=== PATIENT | female | born 1990 | race Caucasian/White ===

== ENCOUNTER → 2021-02-11 08:57 | Outpatient (CLI) | payer BC, SELFPAY ==
[2021-02-11 09:11] LABS: Absolute Lymphocyte Count 1.95 X10^3/uL (0.83-4.51); Basophil# 0.05 X10^3/uL; Basophil% 0.9 % (0-1); Eosinophil# 0.07 X10^3/uL; Eosinophils% 1.2 % (0-5); Hematocrit 43.8 % (37-47); Hemoglobin 14.8 g/dL (12.0-15.0); Lymphocyte # 1.95 X10^3/ul (0.83-4.51); Lymphocyte % 33.5 % (19-41); Mean Corp Hgb Conc 33.8 g/dL (32-36); Mean Corpuscular Hgb 31.8 pg (27.0-32.0); Mean Corpuscular Volume 94.2 fL (81-99); Mean Platelet Vol. 9.6 fl (6.2-12.0); Monocyte# 0.69 X10^3/uL; Monocyte% 11.9 % (0-10); NRBC Flagged by Analyzer 0 % (0-5); Neutrophil # 3.03 X10^3/uL (2.7-7.7); Platelet Count 288 K/mm3 (150-450); RBC Distribution Width CV 11.8 % (11.6-14.6); RBC Distribution Width SD 40.4 fl (35.1-43.9); Red Blood Count 4.65 M/mm3 (4.2-5.4); White Blood Count 5.8 K/mm3 (4.4-11.0)
[2021-02-16 15:35] LABS: HPV APTIMA, High Risk Negative (Negative)
== END ==
PROVIDERS: PCP Family Medicine; Referring Provider Nurse Practitioner Women's Health; Visit Provider Nurse Practitioner Women's Health
DX: Z12.4 Encounter for screening for malignant neoplasm of cervix (principal); N92.6 Irregular menstruation, unspecified
CPT/HCPCS: 36415; 85025; 87624; 88175; G0145

== ENCOUNTER 2021-05-22 09:17 | Outpatient (CLI) | payer BC, SELFPAY ==
--- NOTE | 2021-05-22 09:20 | RAD_ITS ---
STUDY: Hysterosalpingogram. REASON FOR EXAM: Female, 31 years old. Infertility FLUOROSCOPY TIME (if supplied): ( 41 seconds ) minutes/seconds. 3 images were obtained. TECHNIQUE: The hysterosalpingogram was performed by the gyro mechanic. Imaging was provided. COMPARISON: None. FINDINGS: The uterus is unremarkable. There is patency of both fallopian tubes with free spill. RAD/Salpingogram IMPRESSION: There is patency of both fallopian tubes with free spill. Electronically Signed: Clark Ontiveros MD at 12:25 EST , Service support ,
--- NOTE | 2021-05-22 10:26 | OP.PCM_ITS ---
Problems Associated Problem List Diagnoses (1) Infertility: Operative Report Date of Procedure: 05/22/21 Preop diagnosis: Infertility Postop diagnosis: Same plus bilateral tubal patency Procedure: Hysterosalpingogram Surgeon: Jasmyne To Implantable devices: None Complications: None Findings: Bilateral tubal patency and normal uterine cavity Operative details: Patient was taken to the x-ray room and was placed on the x- ray table and was in the dorsal lithotomy position. Speculum was placed in the vagina and the cervix prepped with Betadine and the HSG catheter was easily introduced into the uterus and speculum removed. Radiologist was brought in and while pushing radiopaque dye into the uterus via the HSG catheter the radiologist took multiple images and views and confirmed bilateral tubal patency seen. No gross uterine filling defects or abnormalities were seen. All instruments removed from the vagina and the uterus without complication. Patient tolerated the procedure well.
== END 2021-05-22 23:59 | disposition short-term general hospital (02) ==
LOC: RAD 09:19
PROVIDERS: PCP Family Medicine; Referring Provider Obstetrics & Gynecology; Visit Provider Obstetrics & Gynecology
DX: N97.9 Female infertility, unspecified (principal); N92.6 Irregular menstruation, unspecified
CPT/HCPCS: 58340; 74740; Q9967

== ENCOUNTER 2021-08-18 10:44 | Day surgery (SDC) | payer BC, SELFPAY ==
--- NOTE | 2021-08-16 04:50 | HP.PCM_ITS ---
HPI - General HPI Narrative MANISH LEO, is a 31 F who presents diagnostic laparoscopy due to infertility and dysmenorrhea, she has a family history of endoemtriosis. she has painful menses, had a patent HSG in may. [facility] Medical History (Updated 08/11/21 @ 10:25 by Amy Greene) Alcohol use History of hysterosalpingogram Non-smoker Thyroid disorder Wears glasses Home Medications levothyroxine 75 mcg tablet 75 mcg PO DAILY 03/31/20 [History Last Taken Unknown] vitamin#30 30 mg iron-10 mg iron-folic acid 1 mg-omg3 capsule 1 cap PO DAILY 03/31/20 [History Last Taken Unknown] cholecalciferol (vitamin D3) 50 mcg (2,000 unit) capsule 50 mcg PO DAILY 02/11/21 [History Last Taken Unknown] Allergy/AdvReac Type Severity Reaction Status Date / Time cefaclor [From [facility]] Allergy Mild other Verified 08/11/21 10:19 Family History Father Sarcoid S/P mitral valve repair Mother Osteoporosis Endometriosis Surgical History (Updated 08/11/21 @ 10:25 by Amy Greene) ACL (anterior cruciate ligament) tear Ganglion cyst of left groin Hx of wisdom tooth extraction Social History Smoking Status: Never smoker alcohol intake: current details: social substance use type: does not use caffeine: No what type of physical activity do you participate in: walking, yoga and weight training seatbelt use: always do you feel safe at home: Yes additional social history: [employer] 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 ROS Review of Systems ROS Unobtainable: due to mental status and other Constitutional Constitutional: Reports systems reviewed and no addt'l complaints, except as documented; Denies as per HPI, change in weight, fatigue, fever(s), malaise, weakness or other Eyes Eyes: Reports systems reviewed and no addt'l complaints, except as documented; Denies as per HPI, change in vision or other ENT HEENT: Reports systems reviewed and no addt'l complaints, except as documented Respiratory/Chest Respiratory/Chest: Reports systems reviewed and no addt'l complaints, except as documented Gastrointestinal Gastrointestinal: Reports systems reviewed and no addt'l complaints, except as documented and as per HPI Genitourinary Genitourinary: Reports as per HPI Musculoskeletal Musculoskeletal: Reports systems reviewed and no addt'l complaints, except as documented Neurologic Neurologic: Reports systems reviewed and no addt'l complaints, except as documented Psychiatric Psychiatric: Reports systems reviewed and no addt'l complaints, except as documented Endocrine Endocrinology: Reports systems reviewed and no addt'l complaints, except as doc umented Hematologic/Lymphatic Hematologic/Lymphatic: Reports systems reviewed and no addt'l complaints, except as documented Physical Exam Const alert, oriented x3 and no apparent distress HEENT normocephalic Head and Scalp: atraumatic Eyes EOMs intact bilaterally and conjunctivae normal Neck full ROM, no lymphadenopathy, supple and thyroid normal General: trachea midline Lymph Lymphatic: no lymphadenopathy noted Resp normal respiratory effort, no retractions, no use of accessory muscles and clear to auscultation bilaterally Cardio regular rhythm GI normal to inspection, nondistended, normoactive bowel sounds, soft to palpation, non-distended and no masses Inspection: Negative for abdominal distention Back/Spine no CVA tenderness Extremity normal to inspection Skin no rashes or lesions noted Neuro moves all extremities and deep tendon reflexes 2+ bilaterally Psych mental status grossly normal Assessment & Plan Assessment/Plan (1) Irregular menses: (2) Infertility: (3) Thyroid disease: (4) Dysmenorrhea: PLAN: plan diagnostic laparoscopy chromotubation After discussing the patient's diagnosis and treatment plan options, patient wishes to proceed with surgical management. I have discussed with the patient the risks, benefits, and alternatives of the procedure which include but are not limited to risks of anesthesia, bleeding, infection, possible damage to bowel, bladder, or surrounding vasculature which could lead to additional surgery to evaluate any complications. Patient agrees to procedure and wishes to proceed. ACOG/uptodate references given for additional information regarding procedure. UPDATE- I have seen the patient and performed any clinically relevant updates to the history and physical exam. Jasmyne To MD
[2021-08-18] VITALS (8 sets, daily range): BP systolic 112–122; BP diastolic 57–86; PULSE 51–64; RESP 12–16; TEMP 36.3–36.7; O2SAT 98–100; BMI 21.2
[2021-08-18] MEDS: Lactated Ringers 1,000 ML 15 ML IV (11:00)
[2021-08-18 11:14] LABS: Internal QC Validated? YES +Cl - CLEAR BKGD
[2021-08-18 11:16] LABS: Pregnancy, Urine Negative Negative
[2021-08-18 11:47] LABS: Absolute Lymphocyte Count 2.49 X10^3/uL (0.83-4.51); Absolute Neutrophil Count 2.6 X10^3/uL (2.0-7.7); Basophil# 0.03 X10^3/uL; Basophil% 0.5 % (0-1); Eosinophil# 0.15 X10^3/uL; Eosinophils% 2.5 % (0-5); Hematocrit 43.1 % (37-47); Hemoglobin 14.2 g/dL (12.0-15.0); Lymphocyte # 2.49 X10^3/ul (0.83-4.51); Lymphocyte % 41.8 % (19-41); Mean Corp Hgb Conc 32.9 g/dL (32-36); Mean Corpuscular Hgb 31.7 pg (27.0-32.0); Mean Corpuscular Volume 96.2 fL (81-99); Monocyte# 0.66 X10^3/uL; Monocyte% 11.1 % (0-10); NRBC Flagged by Analyzer 0 % (0-5); Neutrophil # 2.61 X10^3/uL (2.7-7.7); Neutrophil % 43.8 % (47-70); Platelet Count 240 K/mm3 (150-450); RBC Distribution Width CV 11.9 % (11.6-14.6); RBC Distribution Width SD 42.2 fl (35.1-43.9); Red Blood Count 4.48 M/mm3 (4.2-5.4)
[2021-08-18 11:58] LABS: Thyroid Stim Hormone (TSH) 1.47 uIU/mL (0.358-3.74)
--- NOTE | 2021-08-18 13:40 | DCINST_ITS ---
Discharge Instructions Diet Discharge Diet: No restrictions Activity Discharge Activity: Return to Normal Activity, May Not Drive (for 2 weeks or while taking narcotic pain meds.), May Shower and May Take a Tub Bath (in 7 days) May resume sexual activity in: 1 week Weight Bearing Status: Full weight bearing Dressing / Incision Call your doctor if your incision/area has: Continuous Slow Oozing, Sudden Increased Bleeding, Increased Pain/ Swelling, Increased Redness and Foul Smelling Discharge Call your doctor if you observe: Fever of 101 or Higher, Using more than 1 pad per hour, Shortness of breath, Chest pain and Uncontrolled pain Suture Line Care: Avoid Pulling/Pushing and Avoid Pinching/Bending Remove Dressing in: 1 week (if present) Cleanse incision/area with: Soap & Water and Keep Dressing Clean & Dry Follow Up Care When: Call to make an appointment with your doctor for a fu/incision check in 1- 2 weeks. Test Results: Test results from this visit will be discussed in further detail at your follow-up appointment, if applicable. Discharge Plan Admission Attending Provider: Jasmyne To Primary Care Provider: Minna Marks Discharge Orders/Prescriptions Prescriptions: New oxycodone-acetaminophen [Percocet] 5-325 mg tablet 1 tab PO Q6H PRN (Reason: pain) 7 Days Qty: 20 RF: 0 naproxen [naproxen] 500 MG tablet 500 mg PO BID PRN PRN (Reason: Pain) Qty: 30 RF: 1 No Action vitamin#30 30 mg iron-10 mg iron-folic acid 1 mg-omg3 capsule 30 mg iron-10 mg iron-1 mg capsule 1 cap PO DAILY RF: 0 levothyroxine 75 mcg tablet 75 mcg PO DAILY RF: 0 cholecalciferol (vitamin D3) 50 mcg (2,000 unit) capsule 50 mcg PO DAILY RF: 0 Referrals / Follow Up: Minna Marks MD [Primary Care Provider] - Disposition Disposition (needs filled in before D/C Order can be placed): Home, Self Care
--- NOTE | 2021-08-18 13:40 | PCM.OPRPT ---
Problems Associated Problem List Diagnoses (1) Irregular menses: (2) Infertility: (3) Dysmenorrhea: (4) Endometriosis determined by laparoscopy: Report of Operation Date of Procedure: 08/18/21 Pre-Operative Diagnosis: see problem list Post-Operative Diagnosis: same Surgery/Procedure Performed:: Diagnostic laparoscopy ablation of endometriosis chromotubation lysis of adhesions Description of Surgical Findings:: nl uterus tubes ovaries slow to drain but patent fallopian tubes stage I endometriosis, implant on posterior cul de sac Surgeon: Jasmyne To pediatric physical therapist: Darrian Rojas Type of Anesthesia: General and Local Special Medications: none Specimen's removed: none Drains: none Estimated Blood Loss (mL): 50 Fluids Replaced: crystalloid Description of Procedure: Patient was taken in the operating room and was placed under general anesthesia was prepped and draped in normal sterile fashion in the dorsal lithotomy position. Bladder was drained of clear urine and SCDs were on preoperatively. Uterus was sounded and a uterine manipulator was placed after dilating. Attention was then paid to the abdominal portion of the procedure and the umbilicus was elevated with towel clamps and injected with Marcaine and after a 5 mm incision was made and the Veress needle was entered into the abdomen confirmed to be intra-abdominal with a low opening pressure of less than 5 mmHg. Abdomen was insufflated with CO2 gas and a 5 mm optical trocar was placed under direct visualization. A 5 mm port in the left lower quadrant was placed under direct visualization. Uterus was well visualized and a small endometriosis implant was noted in the cul-de-sac. This was ablated with monopolar energy without complication. Left sigmoid to pelvic sidewall adhesions were also noted and taken down sharply and with monopolar energy. Chromotubation was performed and bilateral tubal patency was seen although they were very slow to drain. liver and upper abdomen were visualized notably within normal limits and no other gross abnormalities were seen in the abdomen. All instruments removed from the abdomen after gas was desufflated. Port sites were closed with 3-0 Monocryl Steri's and op sites were applied. All instruments removed from the vagina and patient was awoken and taken recovery in stable condition. Grafts/Implants Used: none Complications none Admit VTE Documentation VTE Present on Admission: No VTE Mechan Device Prophylaxis: SCD's Multi Select Codes Urinary/Genital Urinary/Genital CPT Codes: 31112 HSG/SIS, 39946 Lysis of adhesions, laproscopic, 09776 Laproscopic ablation endometriosis and Other Procedure See Report ([id number])
[2021-08-18] MEDS: Bupivacaine 0.25% 30 ML Vial (13:48)
[2021-08-18] MEDS: HYDROcodone Bitartrate/Apap 5/325 Tablet PO (15:50)
[2021-08-18] MEDS: Ondansetron 4 MG/2 ML Vial IV (16:38)
== END 2021-08-18 17:16 | disposition home or self-care (01) ==
LOC: SDC 10:49 → AC 10:49
PROVIDERS: Anesthesiology; PCP Family Medicine; Referring Provider Obstetrics & Gynecology; Visit Provider Obstetrics & Gynecology
PROC: (CPT 49320; principal; 2021-08-18 12:15)
DX: N80.3 Endometriosis of pelvic peritoneum (principal); N97.9 Female infertility, unspecified; N94.6 Dysmenorrhea, unspecified; N92.6 Irregular menstruation, unspecified; E03.9 Hypothyroidism, unspecified; Z79.890 Hormone replacement therapy; Z79.899 Other long term (current) drug therapy
CPT/HCPCS: 58662; 58350; 00952; 81025; 84443; 85025; 86850; 86900; 86901; 87426; J7120; J2405; Q9968

== ENCOUNTER → 2023-05-11 | Outpatient (CLI) | payer BC, SELFPAY ==
--- NOTE | 2023-05-11 15:55 | US_ITS ---
STUDY: ULTRASOUND OF THE FEMALE PELVIS - COMPLETE REASON FOR EXAM: Female, 33 years old. breakthrough bleeding LMP: Unknown. TECHNIQUE: Transabdominal and Transvaginal TECHNICAL QUALITY: Adequate. COMPARISON: None. FINDINGS: The uterus is retroverted and is in a midline position. The uterus measures 7.1 x 5.7 x 4.5 cm. Normal uterine cervix. The endometrium measures 10 mm in thickness, and is hyperechoic. There is no demonstrated endometrial mass. There is no demonstrated myometrial mass. I.U.D. - The patient does not have an I.U.D. The right ovary is visualized. The right ovary measures 3.0 x 1.7 x 1.7 cm. There is no right ovarian cyst or ovarian mass. There is no visualized right adnexal mass or complex lesion. There is normal arterial and normal venous vascularity. The left ovary is visualized. The left ovary measures 3.2 x 1.7 x 1.8 cm. There is no left ovarian cyst or ovarian mass. There is no visualized left adnexal mass or complex lesion. There is normal arterial and normal venous vascularity. There is no fluid in the cul-de-sac. The volume of the bladder was 274.4 ml. US/Pelvic (Non ) IMPRESSION: Unremarkable female pelvis ultrasound. Electronically Signed: Tanna Santiago MD at 17:12 EST ,
--- OUTSIDE RECORDS SUMMARY | 2023-05-11 16:17 | XMS RPT_ITS | CCD ---
Author Name Unknown Address [address] [facility] [address] [place] [address] Organization [facility] Care Team Providers Care Lunchroom Monitor Name Role Phone Minna Marks MD Primary Care Provider HAY ANTON Referring Unavailable UNKNOWN, PCP Primary Care Unavailable Dr. Sidra Denis Attending Unavailable Minna Marks MD Primary Care Provider MINNA MARKS Primary Care Unavailable HAY ANTON Attending Unavailable HAY ANTON Referring Unavailable MINNA MARKS Primary Care Unavailable HAY ANTON Attending Unavailable GLYNN CONTRERAS Attending Unavailable MINNA MARKS Primary Care Unavailable JANETH ESTRADA Attending Unavailable JANETH ESTRADA Attending Unavailable MINNA MARKS Primary Care Unavailable MAME WARD Attending Unavailable Allergies Allergy Classification Reported Allergen(s) Allergy Type Date of Onset Reaction(s) Facility (5 sources) Cephalosporins (Antibiotic); Translations: [CEPHALOSPORINS] Drug Allergy 01-02-2019 Unknown [facility] (4 sources) Cephalosporins (Antibiotic) Drug Allergy 01-02-2019 Unknown [facility] (7 sources) Cefaclor; Translations: [CEFACLOR] Drug Allergy 10-26-2022 Unknown [facility] Medications Current Medications Medication Drug Class(es) Dates Sig (Normalized) Sig (Original) amoxicillin 875 mg oral tablet (2 sources) Penicillin-class Antibacterial Start: 01-12-2022 End: 01-22-2022 take 1 tablet by mouth every twelve hours amoxicillin (AMOXIL) 875 mg tablet Indications: Bacterial sinusitis Take 1 tablet by mouth every 12 hours for 10 days. 20 tablet 0 01/12/2022 01/22/2022 Active Completed/Discontinued Medications Medication Drug Class(es) Dates Sig (Normalized) Sig (Original) cholecalciferol 0.05 mg oral capsule (5 sources) Vitamin D Start: 02-11-2021 Cholecalciferol, Vitamin D3, 50 mcg (2,000 unit) cap Take 50 mcg by mouth. 0 02/11/2021 Active Problems Active Problems Problem Classification Problem Date Documented Da te Episodic/Chronic Neoplasms of unspecified nature or uncertain behavior (2 sources) Neoplastic disease; Translations: [Neoplasm of unspecified behavior of bone, soft tissue, and skin] Episodic Other and unspecified benign neoplasm (2 sources) Multiple benign melanocytic nevi ; Translations: [Melanocytic nevi, unspecified] Episodic Other circulatory disease (2 sources) Nasal discharge; Translations: [Other specified symptoms and signs involving the circulatory and respiratory systems] Episodic Other skin disorders (2 sources) Solar lentiginosis; Translations: [Other melanin hyperpigmentation] Episodic Other skin disorders (1 source) Seborrheic keratosis; Translations: [Other seborrheic keratosis] Episodic Other skin disorders (2 sources) Inflamed seborrheic keratosis; Translations: [Inflamed seborrheic keratosis] Episodic Other upper respiratory disease (1 source) Seasonal allergic rhinitis; Translations: [Other seasonal allergic rhinitis] Chronic Other upper respiratory disease (2 sources) Nasal congestion; Translations: [Nasal congestion] Episodic Other upper respiratory disease (2 sources) Nasal sinus problem; Translations: [Other specified disorders of nose and nasal sinuses] Episodic Other upper respiratory infections (9 sources) Bacterial sinusitis; Translations: [Chronic sinusitis, unspecified] Onset: 01-12-2022 Chronic Other upper respiratory infections (4 sources) Sore throat symptom; Translations: [Acute pharyngitis, unspecified] Onset: 03-22-2023 Episodic Past or Other Problems Problem Classification Problem Date Documented Da te Episodic/Chronic Headache; including migraine (15 sources) Headache; Translations: [Headache, unspecified headache type] Onset: 07-29-2021 Episodic Other skin disorders (14 sources) Cyst ; Translations: [Follicular cyst of the skin and subcutaneous tissue, unspecified] Onset: 12-13-2019 12-13-2019 Episodic Unclassified (1 source) E03.8 Onset: 06-29-2022 Results Test Name Value Interpretation Reference Range Facil ity Vital Signs Date Time Vital Sign Value Performing Clinician Josemanuel liriano 03-22-2023 11:22-0500 Body height 175.3 cm Mame Ward MD Work Phone: [facility] 03-22-2023 11:22-0500 Body temperature 98.1 [degF] Mame Ward MD Work Phone: [facility] 03-22-2023 11:22-0500 Body weight 71.67 kg Mame Ward MD Work Phone: [facility] 03-22-2023 11:22-0500 Diastolic blood pressure 73 mm[Hg] Mame Ward MD Work Phone: [facility] 03-22-2023 11:22-0500 Heart rate 59 /min Mame Ward MD Work Phone: [facility] 03-22-2023 11:22-0500 Respiratory rate 14 /min Mame Ward MD Work Phone: [facility] 03-22-2023 11:22-0500 SaO2% (BldA) [Mass fraction] 99 % Mame Ward MD Work Phone: [facility] 03-22-2023 11:22-0500 Systolic blood pressure 110 mm[Hg] Mame Ward MD Work Phone: [facility] 11-24-2022 08:37-0400 Body height 175.3 cm Hay [place] PA-C Work Phone: [facility] 11-24-2022 08:37-0400 Body weight 68.04 kg Hay [place] PA-C Work Phone: [facility] 11-24-2022 08:37-0400 Diastolic blood pressure 83 mm[Hg] Hay Desean PA-C Work Phone: [facility] 11-24-2022 08:37-0400 Systolic blood pressure 132 mm[Hg] Hay Desean PA-C Work Phone: [facility] 10-26-2022 15:50-0400 Body height 175.3 cm Hay Anton PA-C Work Phone: [facility] 10-26-2022 15:50-0400 Body weight 68.04 kg Hay Anton PA-C Work Phone: [facility] 10-26-2022 15:50-0400 Diastolic blood pressure 68 mm[Hg] Hay Anton PA-C Work Phone: [facility] 10-26-2022 15:50-0400 Heart rate 59 /min Hay Anton PA-C Work Phone: [facility] 10-26-2022 15:50-0400 Systolic blood pressure 106 mm[Hg] Hay Anton PA-C Work Phone: [facility] 01-12-2022 09:00-0400 Body height 175.3 cm Glynn Contreras APRN.SENIOR COMPUTER SPECIALIST Work Phone: [facility] 01-12-2022 09:00-0400 Body temperature 97.5 [degF] Glynn Contreras APRN.SENIOR COMPUTER SPECIALIST Work Phone: [facility] 01-12-2022 09:00-0400 Body weight 65.32 kg Glynn Contreras APRN.SENIOR COMPUTER SPECIALIST Work Phone: [facility] 01-12-2022 09:00-0400 Diastolic blood pressure 73 mm[Hg] Glynn Contreras APRN.SENIOR COMPUTER SPECIALIST Work Phone: [facility] 01-12-2022 09:00-0400 Heart rate 67 /min Glynn Contreras APRN.SENIOR COMPUTER SPECIALIST Work Phone: [facility] 01-12-2022 09:00-0400 SaO2% (BldA) [Mass fraction] 100 % Glynn Contreras APRN.SENIOR COMPUTER SPECIALIST Work Phone: [facility] 01-12-2022 09:00-0400 Systolic blood pressure 110 mm[Hg] Glynn Contreras APRN.SENIOR COMPUTER SPECIALIST Work Phone: [facility] 10-14-2021 16:00-0400 Body height 175.3 cm Hay Anton PA-C Work Phone: [facility] 10-14-2021 16:00-0400 Body weight 64.46 kg Hay Anton PA-C Work Phone: [facility] 10-14-2021 16:00-0400 Diastolic blood pressure 75 mm[Hg] Hay Anton PA-C Work Phone: [facility] 10-14-2021 16:00-0400 Systolic blood pressure 119 mm[Hg] Hay Anton PA-C Work Phone: [facility] Encounters Encounter Date Encounter Type Care Provider Facility Start: 03-22-2023 End: 03-22-2023 ambulatory MINNA Collins BECKITHONGMARCINNORMA Facility:[id number] Start: 03-22-2023 End: 03-22-2023 Patient encounter procedure Mame Ward MD Work Phone: [facility] Procedures Date Procedure Procedure Detail Performing Clinician Start: 03-22-2023 RAPID STREP TEST B/O Re shahriar Ward MD Work Phone: Start: 01-04-2023 [facility] IMER Estrada MD Work Phone: Start: 06-29-2022 OUSMANE Estrada MD Work Phone: Start: 01-12-2022 Adult depression scr eening assessment Glynn Contreras APRN.SENIOR COMPUTER SPECIALIST Work Phone: Start: 12-30-2021 [facility] IMER Estrada MD Work Phone: Start: 10-02-2021 [facility] To Work Phone: Start: 12-13-2019 Adult depression scr eening assessment Glynn Contreras APRN.SENIOR COMPUTER SPECIALIST Work Phone: Plan of Treatment Date Care Activity Detail Author Start: 02-11-2026 HPV TESTING HPV TESTING [facility] Start: 02-11-2026 PAP TESTING PAP TESTING [facility] Start: 01-12-2023 Adult depression screening assessment DEPRESSION SCREENING [facility] Start: 12-31-2022 Covid-19 Vaccine () Covid-19 Vaccine ( season) [facility] Start: 12-31-2022 Influenza vaccination [facility] Start: 05-02-2022 DEPRESSION ASSESSMENT DEPRESSION ASSESSMENT [facility] Start: 12-31-2021 Influenza vaccination [facility] Start: 12-31-2020 Influenza vaccination INFLUENZA (#1) [facility] Start: 12-12-2020 Adult depression screening assessment DEPRESSION SCREENING [facility] Start: 10-01-2020 COVID-19 VACCINE (2 - Mixed Product series) COVID-19 VACCINE (2 - Mixed Product series) [facility] Start: 09-03-2020 COVID-19 VACCINE (2 - Inadvertent 3-dose series) COVID-19 VACCINE (2 - Inadvertent 3-dose series) [facility] Start: 09-03-2020 COVID-19 VACCINE (2 - Mixed Product series) COVID-19 VACCINE (2 - Mixed Product series) [facility] Start: 06-17-2019 Urine microalbumin profile [facility] Start: 02-03-2008 HEPATITIS C SCREENING HEPATITIS C SCREENING [facility] Start: 02-03-2008 HIV SCREENING HIV SCREENING [facility] Destruction benign lesions up to 14 DESTR LESION BENIGN/PREMAL Procedures Routine Inflamed seborrheic keratosis Ordered: 11/24/2022 [facility] Work Phone: Immunizations Immunization Date Immunization Notes Care Provider Fa mariam 08-06-2020 COVID-19 vaccine (UNSPECIFIED) Glynn Contreras APRN.SENIOR COMPUTER SPECIALIST Work Phone: [facility] 02-24-2020 influenza virus vacc ine, unspecified formulation Glynn Contreras APRN.SENIOR COMPUTER SPECIALIST Work Phone: [facility] 02-09-2010 human papilloma viru s vaccine, bivalent Glynn Contreras APRN.SENIOR COMPUTER SPECIALIST Work Phone: [facility] 08-15-2009 human papilloma viru s vaccine, bivalent Glynn Contreras APRN.SENIOR COMPUTER SPECIALIST Work Phone: [facility] 06-17-2009 human papilloma viru s vaccine, bivalent Glynn Contreras APRN.SENIOR COMPUTER SPECIALIST Work Phone: [facility] 06-17-2009 tetanus toxoid, redu jose diphtheria toxoid, and acellular pertussis vaccine, adsorbed Glynn Contreras APRN.SENIOR COMPUTER SPECIALIST Work Phone: [facility] 08-05-1993 hepatitis B vaccine, pediatric or pediatric/adolescent dosage Glynn Contreras APRN.SENIOR COMPUTER SPECIALIST Work Phone: [facility] 02-11-1993 hepatitis B vaccine, pediatric or pediatric/adolescent dosage Glynn Contreras AGRICULTURE LABORER.SENIOR COMPUTER SPECIALIST Work Phone: [facility] 01-12-1993 hepatitis B vaccine, pediatric or pediatric/adolescent dosage Glynn Contreras APRN.SENIOR COMPUTER SPECIALIST Work Phone: [facility] Payers Date Payer Category Payer Unknown [employer] PPO OOS [id number] 2020-Present [phone] [address] [place] [address] PPO [id number] 2020 Unknown [employer] PPO OOS [id number] 2020-Present [phone] [address] [place] [address] PPO [id number] 2020 Unknown [id number] 2018 Unknown [employer] PPO [id number] 2018-Present [phone] [address] [place] [address] PPO [id number] 1990 Unknown [id number] Unknown [id number] Unknown [id number] Social History Date Type Detail Facility Start: 01-02-2019 End: 11-24-2022 Tobacco smoking status NHIS Never smoked tobacco [facility] Start: 01-02-2019 End: 11-24-2022 Tobacco use and exposure Smokeless tobacco non-user [facility] Start: 01-23-2020 End: 03-22-2023 Alcohol intake Lifetime non-drinker (finding) [facility] Start: 12-17-2019 History SDOH Alcohol Frequency 1 [facility] Start: 1990 Sex Assigned At Not on file [facility] Start: 07-19-2021 End: 01-12-2022 Exposure to SARS-CoV-2 (event) Not sure [facility] Start: 12-17-2019 End: 10-26-2022 [facility] of [facility] Start: 12-17-2019 End: 10-26-2022 Alcohol Use Disorder Identification Test - Consumption [AUDIT-C] [facility] How often to you hav e a drink containing alcohol? Never [facility] Average Number of Drinks Not on file [facility] Clinical Notes 07-29-2021 to 03-22-2023 Mame Ward MD - 03/22/2023 11:59 AM ESTTelephone Encounter - Lilian Clemons - 11/30/2022 9:47 AM EDTTelephone Encounter - Lilian Clemons - 11/30/2022 9:21 AM EDTPatient Instructions Note Date & Type Note Facility 03-22-2023 Note HNO ID: [id number] Author: aMme Ward MD Service: ? Author Type: Physician Type: Progress Notes Filed: 04/03/2023 1:17 PM Note Text: Date: March 22, 2023 Chief Complaint: Sore Throat (She has a sore throat that started on 03/21/2023. She also has a slight headache, congestion, runny nose, ear pressure, fatigue. ) HISTORY OF PRESENT ILLNESS: Manish Barron is a 33 year old female who presents for Sore Throat (She has a sore throat that started on 03/21/2023. She also has a slight headache, congestion, runny nose, ear pressure, fatigue. ). Manish developed a ST last night- left greater than right. Some tender glands. Pressure left ear. Headache - frontal - congestion. No toothache Nasal congestion No myalgia No fever, chills, sweats No cough. Works at [employer] No rash Tried tylenol in the middle of the night- salt water. Her developed a ST last night. They had Thanksgiving on Tuesday and were with family members. She wants to make sure she does not have strep throat or something contagious ALLERGIES Allergen Reactions Ceclor [Cefaclor] Unknown PAST MEDICAL HISTORY Diagnosis Date Abnormal cervical Papanicolaou smear Endometriosis Family history of nonmelanoma skin cancer Hypothyroidism Lower respiratory infection Pap smear abnormality of cervix/human papillomavirus (HPV) positive Pap smear of cervix shows high risk HPV present PAST SURGICAL HISTORY Procedure Laterality Date KNEE SURGERY HX Right 10/2009 ACL LAPAROSCOPY DIAGNOSTIC 08/18/2021 [facility]. TOOTH EXTRACTION [place] FAMILY HISTORY Problem Relation Age of Onset Osteoporosis Mother other (Endometriosis) Mother Hypertension Father other (Sarcoidosis) Father other (Aortic Valve repair) Father Osteoporosis Maternal Grandmother Skin Cancer Maternal Grandfather Social History Tobacco Use Smoking status: Never Smokeless tobacco: Never Substance Use Topics Alcohol use: Never Drug use: Never Current Outpatient Medications Medication Sig Multivitamin capsule Take 1 capsule by mouth once daily. Cholecalciferol, Vitamin D3, 50 mcg (2,000 unit) cap Take 50 mcg by mouth. levothyroxine (SYNTHROID) 75 mcg tablet Take by mouth. No current facility-administered medications for this visit. Review of Systems Constitutional: Positive for fatigue. Negative for activity change, appetite change and fever. HENT: Positive for congestion, ear pain (left), sinus pressure and sore throat. Negative for mouth sores, postnasal drip and trouble swallowing. Eyes: Negative for pain and discharge. Respiratory: Negative for cough, chest tightness and shortness of breath. Cardiovascular: Negative for chest pain. Gastrointestinal: Negative for diarrhea, nausea and vomiting. Musculoskeletal: Negative for arthralgias and myalgias. Allergic/Immunologic: Negative for environmental allergies. Neurological: Positive for headaches. Negative for light-headedness. Psychiatric/Behavioral: Positive for sleep disturbance. BP 110/73 Pulse 59 Temp (Src) 98.1 (Oral) Resp 14 Ht 5' 9 (1.75m) Wt 158 lb (71.7kg) SpO2 99% LMP 02/23/2023 BMI 23.32 kg/(m2). Physical Exam Constitutional: General: She is not in acute distress. Appearance: She is not ill-appearing. HENT: Head: Normocephalic and atraumatic. Right Ear: Tympanic membrane normal. Left Ear: Tympanic membrane normal. Nose: Nose normal. Mouth/Throat: Mouth: Mucous membranes are moist. No angioedema. Dentition: Normal dentition. Tonsils: No tonsillar exudate or tonsillar abscesses. Comments: Mild post nasal drainage Mild erythematous pharynx Eyes: General: No scleral icterus. Right eye: No discharge. Left eye: No discharge. Conjunctiva/sclera: Conjunctivae normal. Neck: Comments: Left cervical node tenderness - no enlarged nodes Cardiovascular: Rate and Rhythm: Normal rate and regular rhythm. Heart sounds: Normal heart sounds. Pulmonary: Effort: Pulmonary effort is normal. Breath sounds: Normal breath sounds. Musculoskeletal: Cervical back: Neck supple. No rigidity or tenderness. Skin: Coloration: Skin is not cyanotic. Findings: No rash. Neurological: Mental Status: She is alert and oriented to person, place, and time. Cranial Nerves: Cranial nerves 2-12 are intact. Motor: Motor function is intact. Gait: Gait is intact. Psychiatric: Attention and Perception: Perception normal. Mood and Affect: Mood and affect normal. Speech: Speech normal. Cognition and Memory: Cognition and memory normal. LABS: HBA1C No results found for: HBA1C Microalbumin No results found for: UCR Bun BUN (mg/dL) Date Value 06/30/2021 15 12/13/2019 17 01/27/2017 12 Creatinine Creatinine (mg/dL) Date Value 06/30/2021 1.09 12/13/2019 0.69 01/27/2017 0.75 Lipid Panel Cholesterol, Total (mg/dL) Date Value 01/27/2017 189 Tri (more content not included)... [facility] 03-22-2023 History of Presen t illness Narrative Date: March 22, 2023 Chief Complaint: Sore Throat (She has a sore throat that started on 03/21/2023. She also has a slight headache, congestion, runny nose, ear pressure, fatigue. ) HISTORY OF PRESENT ILLNESS: Manish Barron is a 33 year old female who presents for Sore Throat (She has a sore throat that started on 03/21/2023. She also has a slight headache, congestion, runny nose, ear pressure, fatigue. ). Manish developed a ST last night- left greater than right. Some tender glands. Pressure left ear. Headache - frontal - congestion. No toothache Nasal congestion No myalgia No fever, chills, sweats No cough. Works at [employer] No rash Tried tylenol in the middle of the night- salt water. Her developed a ST last night. They had Thanksgiving on Tuesday and were with family members. She wants to make sure she does not have strep throat or something contagious ALLERGIES Allergen Reactions Ceclor [Cefaclor] Unknown PAST MEDICAL HISTORY Diagnosis Date Abnormal cervical Papanicolaou smear Endometriosis Family history of nonmelanoma skin cancer Hypothyroidism Lower respiratory infection Pap smear abnormality of cervix/human papillomavirus (HPV) positive Pap smear of cervix shows high risk HPV present PAST SURGICAL HISTORY Procedure Laterality Date KNEE SURGERY HX Right 10/2009 ACL LAPAROSCOPY DIAGNOSTIC 08/18/2021 [facility]. TOOTH EXTRACTION [place] teeth FAMILY HISTORY Problem Relation Age of Onset Osteoporosis Mother other (Endometriosis) Mother Hypertension Father other (Sarcoidosis) Father other (Aortic Valve repair) Father Osteoporosis Maternal Grandmother Skin Cancer Maternal Grandfather Social History Tobacco Use Smoking status: Never Smokeless tobacco: Never Substance Use Topics Alcohol use: Never Drug use: Never Current Outpatient Medications Medication Sig Multivitamin capsule Take 1 capsule by mouth once daily. Cholecalciferol, Vitamin D3, 50 mcg (2,000 unit) cap Take 50 mcg by mouth. levothyroxine (SYNTHROID) 75 mcg tablet Take by mouth. No current facility-administered medications for this visit. Review of Systems Constitutional: Positive for fatigue. Negative for activity change, appetite change and fever. HENT: Positive for congestion, ear pain (left), sinus pressure and sore throat. Negative for mouth sores, postnasal drip and trouble swallowing. Eyes: Negative for pain and discharge. Respiratory: Negative for cough, chest tightness and shortness of breath. Cardiovascular: Negative for chest pain. Gastrointestinal: Negative for diarrhea, nausea and vomiting. Musculoskeletal: Negative for arthralgias and myalgias. Allergic/Immunologic: Negative for environmental allergies. Neurological: Positive for headaches. Negative for light-headedness. Psychiatric/Behavioral: Positive for sleep disturbance. BP 110/73 Pulse 59 Temp (Src) 98.1 (Oral) Resp 14 Ht 5' 9 (1.75m) Wt 158 lb (71.7kg) SpO2 99% LMP 02/23/2023 BMI 23.32 kg/(m^2). Physical Exam Constitutional: General: She is not in acute distress. Appearance: She is not ill-appearing. HENT: Head: Normocephalic and atraumatic. Right Ear: Tympanic membrane normal. Left Ear: Tympanic membrane normal. Nose: Nose normal. Mouth/Throat: Mouth: Mucous membranes are moist. No angioedema. Dentition: Normal dentition. Tonsils: No tonsillar exudate or tonsillar abscesses. Comments: Mild post nasal drainage Mild erythematous pharynx Eyes: General: No scleral icterus. Right eye: No discharge. Left eye: No discharge. Conjunctiva/sclera: Conjunctivae normal. Neck: Comments: Left cervical node tenderness - no enlarged nodes Cardiovascular: Rate and Rhythm: Normal rate and regular rhythm. Heart sounds: Normal heart sounds. Pulmonary: Effort: Pulmonary effort is normal. Breath sounds: Normal breath sounds. Musculoskeletal: Cervical back: Neck supple. No rigidity or tenderness. Skin: Coloration: Skin is not cyanotic. Findings: No rash. Neurological: Mental Status: She is alert and oriented to person, place, and time. Cranial Nerves: Cranial nerves 2-12 are intact. Motor: Motor function is intact. Gait: Gait is intact. Psychiatric: Attention and Perception: Perception normal. Mood and Affect: Mood and affect normal. Speech: Speech normal. Cognition and Memory: Cognition and memory normal. LABS: HBA1C No results found for: HBA1C Microalbumin No results found for: UCR Bun BUN (mg/dL) Date Value 06/30/2021 15 12/13/2019 17 01/27/2017 12 Creatinine Creatinine (mg/dL) Date Value 06/30/2021 1.09 12/13/2019 0.69 01/27/2017 0.75 Lipid Panel Cholesterol, Total (mg/dL) Date Value 01/27/2017 189 Triglyceride (mg/dL) Date Value 01/27/2017 121 HDL Cholesterol (mg/dL) Date Value 01/27/2017 54 LDL (mg/dL) Date Value 01/27/2017 111 TSH (uIU/mL) Date Value 01/04/2023 1.08 Free T4 (ng/dL) Date Value 02/13/2020 0.70 Free T3 (pg/mL) Date Value 02/13/2020 2.4 Glucose (mg/dL) Date Value 06/30/2021 91 BUN (mg/dL) Date Value 06/30/2021 15 Creatinine (mg/dL) Date Value 06/30/2021 1.09 (H) Potassium (mmol/L) Date Value 06/30/2021 4.1 Calcium (mg/dL) Date Value 06/30/2021 9.9 AST (U/L) Date Value 12/13/2019 29 ALT (U/L) Date Value 12/13/2019 25 ASSESSMENT/PLAN: 1. Sore throat - ICD9: 462, ICD10: J02.9 - suspect viral - Discussed supportive care treatment with fluids, rest and analgesia. - Contagious dz precautions discussed- including considered contagious until on antibiotics for 24 hours - Call back if drooling, increased temperature, symptoms of dehydration and/or still sick in one week - RAPID STREP TEST B/O Mame Ward Portions of this note have been entered by ancillary staff. I have reviewed and when necessary edited, so that they are an adequate record of my encounter with this patient. Encouraged proper diet and exercise. Age appropriate health preventative measures were discussed. The above medical documentation was generated using groopify voice recognition system, as such, the contents may contain grammatical errors Mame Ward MD documented in this encounter [facility] 11-30-2022 Miscellaneous Notes Patient is advised of biopsy results, had no further questions or concerns. Lilian Clemons Left message to contact office about her biopsy results. The right temporal scalp, left lateral back, and the left midline mid back all came back as benign melanocytic nevus. Moles are all benign and no further treatment is needed. Lilian Clemons documented in this encounter [facility] 11-24-2022 Note HNO ID: [id number] Author: Hay Anton PA-C Service: ? Author Type: Physician Signalman Type: Progress Notes Filed: 11/29/2022 12:29 AM Note Text: This is a 32 year old White female who presents today for biopsies on her right temporal scalp and back. She had vacation that she was going to at her last visit and wanted to wait. She does have a spot in the groin that she wanted treated as well. She states she has to be cautious when shaving and it has been alittle itchy. ACTIVE PROBLEM LIST Subcutaneous Cyst Headache, Unspecified Headache Type Bacterial Sinusitis ALLERGIES Allergen Reactions Ceclor [Cefaclor] Unknown FAMILY HISTORY Problem Relation Age of Onset Osteoporosis Mother other (Endometriosis) Mother Hypertension Father other (Sarcoidosis) Father other (Aortic Valve repair) Father Osteoporosis Maternal Grandmother Skin Cancer Maternal Grandfather Social History Tobacco Use Smoking status: Never Smokeless tobacco: Never Substance Use Topics Alcohol use: Never Drug use: Never Current Outpatient Medications Medication Sig Dispense Refill PNV #[id number] [id number] 30 mg iron-10 mg iron-1 mg cap Take by mouth. Cholecalciferol, Vitamin D3, 50 mcg (2,000 unit) cap Take 50 mcg by mouth. levothyroxine (SYNTHROID) 75 mcg tablet Take by mouth. No current facility-administered medications for this visit. PAST SURGICAL HISTORY Procedure Laterality Date KNEE SURGERY HX Right 10/2009 ACL TOOTH EXTRACTION [place] teeth REVIEW OF SYSTEMS GENERAL: Patient feels well and denies any recent fevers, chills, or night sweats. SKIN: Negative for rash and itching, Positive for lesions: scalp, back and groin PHYSICAL EXAMINATION BP 132/83 Ht 5' 9 (1.75m) Wt 150 lb (68.0kg) BMI 22.14 kg/(m2). The patient is pleasant and in no distress. She is alert and oriented x 3. Involving the scalp, back, and groin. -pink and medium brown papules of right temporal scalp, left lateral back and left midline mid back -medium brown waxy papule of suprapubic area over mons pubis ASSESSMENT/PLAN: 1. 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 1 cc of 1% lidocaine with 1:100,000 epinephrine was injected to obtain anesthesia of the lesion on the right temporal scalp, left lateral back and left midline back. Biopsies were performed by shave technique. Hemostasis was achieved with aluminum chloride. White petroleum jelly and a bandage were applied to the wound. Verbal and written wound care instructions were provided to the patient. The patient left the dermatology clinic in good condition. The specimen was sent to dermatopathology at [facility]. - LIDOCAINE 1 %-EPINEPHRINE 1:100,000 INJECTION SOLUTION - SURGICAL PATHOLOGY 2. Inflamed seborrheic keratosis - ICD9: 702.11, ICD10: L82.0 -suprapubic area over mons pubis -benign, patient reassured -1 lesion treated today with LN 2 x 2 cycles, see procedure note Treated 1 lesion of suprapubic area over mons pubis with liquid nitrogen cryotherapy for two 10-15 second freeze/thaw cycles. Irritation after treatment is expected which can even include blister formation. This will heal in 7-10 days. Recommend application of white petrolatum to speed healing. Written and verbal instructions provided to patient. Patient left the clinic in good condition. - DESTR LESION BENIGN/PREMAL Hay Anton PA-C Return if symptoms worsen or fail to improve, for review test results/pathology report. UNIVERSAL PROTOCOL / SAFETY CHECKLIST Procedure to be Performed: shave bx x2 Sign In: A Moment of CARE was completed. Personnel directly involved with the procedure wore the appropriate PPE (Personal Protective Equipment). Patient/Surrogate Stated/Verified: PATIENT VERIFIED(optional for EMERGENT procedures): Patient name, Date of , Relevant allergies, and The intended procedure Time Out Communication: Intended patient and procedure match the source documents. Consent documented and matches the intended procedure. Sign Out: SIGN OUT (optional for EMERGENT procedures): All specimen containers correctly labeled. Jasmyn Herman [facility] 11-24-2022 Nurse Note Patient given Lidocaine 1% with epinephrine 1.0mL SC in the right temporal scalp, left lateral back, left midline mid back. Patient tolerated injection well. Lot#: [id number] Exp date: 04/01/23 [facility]: 2404-5535-39 Jasmyn Herman documented in this encounter [facility] 11-24-2022 Instructions Hay Anton PA-C - 11/24/2022 8:37 AM EDT POST-BIOPSY CARE If the wound starts to bleed, apply pressure for 20 minutes (do not peek at wound). WOUND CARE: Wash your hands before and after each bandage change. Wash wound with plain soap and warm water daily (or clean during bath or shower). Pat wound dry with a clean towel. Apply plain Vaseline with Q-tip. DO NOT use antibiotic ointment!! Cover with bandage. Continue wound care until it has healed. The wound should heal in 2-3 weeks. You will be called by your doctor with the biopsy results within 14 days. WHEN TO CALL THE CLINIC: Temperature (fever) over 100.4 F. Redness, swelling, drainage, heat or pain that does not improve over time. Please call the office if you have not received a letter or call about your biopsy results within 14 days. Office Phone #: [phone] FREEZING After Freezing: After the spot is frozen, it may sting or burn for 10-15 minutes. The skin around the frozen spot may look puffy and red for several days. You may get a blister over the frozen spot. This may last a few days. The frozen spot may heal with quality control tester or darker color skin. There may be a small scar. Wound Care: Wash with plain soap and warm water or clean during bath or shower. Pat dry with clean towel. Apply plain Vaseline with Q-tip to keep lesion moist for faster healing. Wound should heal in 2-3 weeks. Lesion may be covered with a bandage if desired. Please call the office with any questions at [phone] documented in this encounter [facility] 11-24-2022 History of Presen t illness Narrative This is a 32 year old White female who presents today for biopsies on her right temporal scalp and back. She had vacation that she was going to at her last visit and wanted to wait. She does have a spot in the groin that she wanted treated as well. She states she has to be cautious when shaving and it has been alittle itchy. ACTIVE PROBLEM LIST Subcutaneous Cyst Headache, Unspecified Headache Type Bacterial Sinusitis ALLERGIES Allergen Reactions Ceclor [Cefaclor] Unknown FAMILY HISTORY Problem Relation Age of Onset Osteoporosis Mother other (Endometriosis) Mother Hypertension Father other (Sarcoidosis) Father other (Aortic Valve repair) Father Osteoporosis Maternal Grandmother Skin Cancer Maternal Grandfather Social History Tobacco Use Smoking status: Never Smokeless tobacco: Never Substance Use Topics Alcohol use: Never Drug use: Never Current Outpatient Medications Medication Sig Dispense Refill PNV #[id number] acid-omega3 30 mg iron-10 mg iron-1 mg cap Take by mouth. Cholecalciferol, Vitamin D3, 50 mcg (2,000 unit) cap Take 50 mcg by mouth. levothyroxine (SYNTHROID) 75 mcg tablet Take by mouth. No current facility-administered medications for this visit. PAST SURGICAL HISTORY Procedure Laterality Date KNEE SURGERY HX Right 10/2009 ACL TOOTH EXTRACTION [place] teeth REVIEW OF SYSTEMS GENERAL: Patient feels well and denies any recent fevers, chills, or night sweats. SKIN: Negative for rash and itching, Positive for lesions: scalp, back and groin PHYSICAL EXAMINATION BP 132/83 Ht 5' 9 (1.75m) Wt 150 lb (68.0kg) BMI 22.14 kg/(m^2). The patient is pleasant and in no distress. She is alert and oriented x 3. Involving the scalp, back, and groin. -pink and medium brown papules of right temporal scalp, left lateral back and left midline mid back -medium brown waxy papule of suprapubic area over mons pubis ASSESSMENT/PLAN: 1. 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 1 cc of 1% lidocaine with 1:100,000 epinephrine was injected to obtain anesthesia of the lesion on the right temporal scalp, left lateral back and left midline back. Biopsies were performed by shave technique. Hemostasis was achieved with aluminum chloride. White petroleum jelly and a bandage were applied to the wound. Verbal and written wound care instructions were provided to the patient. The patient left the dermatology clinic in good condition. The specimen was sent to dermatopathology at [facility]. - LIDOCAINE 1 %-EPINEPHRINE 1:100,000 INJECTION SOLUTION - SURGICAL PATHOLOGY 2. Inflamed seborrheic keratosis - ICD9: 702.11, ICD10: L82.0 -suprapubic area over mons pubis -benign, patient reassured -1 lesion treated today with LN 2 x 2 cycles, see procedure note Treated 1 lesion of suprapubic area over mons pubis with liquid nitrogen cryotherapy for two 10-15 second freeze/thaw cycles. Irritation after treatment is expected which can even include blister formation. This will heal in 7-10 days. Recommend application of white petrolatum to speed healing. Written and verbal instructions provided to patient. Patient left the clinic in good condition. - DESTR LESION BENIGN/PREMAL Hay Anton PA-C Return if symptoms worsen or fail to improve, for review test results/pathology report. UNIVERSAL PROTOCOL / SAFETY CHECKLIST Procedure to be Performed: shave bx x2 Sign In: A Moment of CARE was completed. Personnel directly involved with the procedure wore the appropriate PPE (Personal Protective Equipment). Patient/Surrogate Stated/Verified: PATIENT VERIFIED(optional for EMERGENT procedures): Patient name, Date of , Relevant allergies, and The intended procedure Time Out Communication: Intended patient and procedure match the source documents. Consent documented and matches the intended procedure. Sign Out: SIGN OUT (optional for EMERGENT procedures): All specimen containers correctly labeled. Jasmyn Felgenhauer documented in this encounter [facility] 10-26-2022 Note HNO ID: [id number] Author: Hay Anton PA-C Service: ? Author Type: Physician Signalman Type: Progress Notes Filed: 10/27/2022 1:33 AM Note Text: This is a 32 year old White female without a personal history of skin cancer who presents today for a full skin exam. Concerned with a mole on her right groin, back and right side of her scalp. The one on the right zoroastrian gets sore from brushing her hair. She wondered if it was irregular in appearance. She has a couple moles on her back that get rubbed on her bra. She states they have become more bothersome regularly. She still would like the spot on the right groin checked. She states it is rough and can be itchy at times. Denies any other growing or changing lesions, lesions which have been bleeding or itching, or any other lesions of concern today. Patient is engaging in sun protective measures. Patient is performing self-skin examinations. ALLERGIES No Known Allergies No current outpatient medications on file. No current facility-administered medications for this visit. PAST MEDICAL HISTORY Diagnosis Date Known health problems: none PAST PERSONAL SKIN PROBLEMS:None FAMILY HISTORY Problem Relation Age of Onset No Known Problems Mother No Known Problems Father Social History Socioeconomic History Marital status: Spouse name: Not on file Number of children: Not on file Years of education: Not on file Highest education level: Not on file Occupational History Not on file Social Needs Financial resource strain: Not on file Food insecurity: Worry: Not on file Inability: Not on file Transportation needs: Medical: Not on file Non-medical: Not on file Tobacco Use Smoking status: Never Smoker Smokeless tobacco: Never Used Substance and Sexual Activity Alcohol use: No Drug use: No Sexual activity: Not on file Lifestyle Physical activity: Days per week: Not on file Minutes per session: Not on file Stress: Not on file Relationships Social connections: Talks on phone: Not on file Gets together: Not on file Attends baptism service: Not on file Active member of club or organization: Not on file Attends meetings of clubs or organizations: Not on file Relationship status: Not on file Intimate partner violence: Fear of current or ex partner: Not on file Emotionally abused: Not on file Physically abused: Not on file Forced sexual activity: Not on file Other Topics Concerns: Not on file Social History Narrative Not on file REVIEW OF SYSTEMS: Patient feels well and denies any recent fevers, chills, or nightsweats. PHYSICAL EXAM BP 106/68 Pulse 59 Ht 5' 9 (1.75m) Wt 150 lb (68.0kg) BMI 22.14 kg/(m2). General appearance: Well appearing, alert, in no acute distress, well-hydrated, well nourished. Skin: Total body skin examination performed. All areas examined including: scalp, face, conjunctiva/eyelids, lips/mouth, neck, chest, abdomen, back, left upper extremity, right upper extremity, digits/nails, left lower extremity, right lower extremity. -several medium brown well-circumscribed papules of face, trunk and extremities -pink and medium brown papules of right temporal scalp and mid back -many scott macules with normal pigmentation of face, trunk and extremities -medium brown waxy papule of right groin ASSESSMENT/PLAN: 1. Multiple benign nevi - ICD9: 216.9, ICD10: D22.9 (primary diagnosis) -face, scalp, trunk and extremities -benign, patient reassured -Recommend self-monitoring of lesions for ABCDE changes, discussed with patient -recommend diligent sun protection when outdoors 2. 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 Inflamed seborrheic keratosis - ICD9: 702.11, ICD10: L82.0 -right groin -plan for cryotherapy in 1 month due to upcoming vacation and will be in [place] -benign, patient reassured 4. Neoplasm of unspecified behavior of bone, soft tissue, and skin - ICD9: 239.2, ICD10: D49.2 -right temporal scalp and mid back, r/o dysplastic nevi vs irritated nevi -plan to do biopsies in 1 month due to upcoming vacation Hay Anton PA-C Return in about 1 month (around 11/25/2022). [facility] 10-26-2022 History of Presen t illness Narrative This is a 32 year old White female without a personal history of skin cancer who presents today for a full skin exam. Concerned with a mole on her right groin, back and right side of her scalp. The one on the right zoroastrian gets sore from brushing her hair. She wondered if it was irregular in appearance. She has a couple moles on her back that get rubbed on her bra. She states they have become more bothersome regularly. She still would like the spot on the right groin checked. She states it is rough and can be itchy at times. Denies any other growing or changing lesions, lesions which have been bleeding or itching, or any other lesions of concern today. Patient is engaging in sun protective measures. Patient is performing self-skin examinations. ALLERGIES No Known Allergies No current outpatient medications on file. No current facility-administered medications for this visit. PAST MEDICAL HISTORY Diagnosis Date Known health problems: none PAST PERSONAL SKIN PROBLEMS:None FAMILY HISTORY Problem Relation Age of Onset No Known Problems Mother No Known Problems Father Social History Socioeconomic History Marital status: Spouse name: Not on file Number of children: Not on file Years of education: Not on file Highest education level: Not on file Occupational History Not on file Social Needs Financial resource strain: Not on file Food insecurity: Worry: Not on file Inability: Not on file Transportation needs: Medical: Not on file Non-medical: Not on file Tobacco Use Smoking status: Never Smoker Smokeless tobacco: Never Used Substance and Sexual Activity Alcohol use: No Drug use: No Sexual activity: Not on file Lifestyle Physical activity: Days per week: Not on file Minutes per session: Not on file Stress: Not on file Relationships Social connections: Talks on phone: Not on file Gets together: Not on file Attends baptism service: Not on file Active member of club or organization: Not on file Attends meetings of clubs or organizations: Not on file Relationship status: Not on file Intimate partner violence: Fear of current or ex partner: Not on file Emotionally abused: Not on file Physically abused: Not on file Forced sexual activity: Not on file Other Topics Concerns: Not on file Social History Narrative Not on file REVIEW OF SYSTEMS: Patient feels well and denies any recent fevers, chills, or nightsweats. PHYSICAL EXAM BP 106/68 Pulse 59 Ht 5' 9 (1.75m) Wt 150 lb (68.0kg) BMI 22.14 kg/(m^2). General appearance: Well appearing, alert, in no acute distress, well-hydrated, well nourished. Skin: Total body skin examination performed. All areas examined including: scalp, face, conjunctiva/eyelids, lips/mouth, neck, chest, abdomen, back, left upper extremity, right upper extremity, digits/nails, left lower extremity, right lower extremity. -several medium brown well-circumscribed papules of face, trunk and extremities -pink and medium brown papules of right temporal scalp and mid back -many scott macules with normal pigmentation of face, trunk and extremities -medium brown waxy papule of right groin ASSESSMENT/PLAN: 1. Multiple benign nevi - ICD9: 216.9, ICD10: D22.9 (primary diagnosis) -face, scalp, trunk and extremities -benign, patient reassured -Recommend self-monitoring of lesions for ABCDE changes, discussed with patient -recommend diligent sun protection when outdoors 2. 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 Inflamed seborrheic keratosis - ICD9: 702.11, ICD10: L82.0 -right groin -plan for cryotherapy in 1 month due to upcoming vacation and will be in [place] -benign, patient reassured 4. Neoplasm of unspecified behavior of bone, soft tissue, and skin - ICD9: 239.2, ICD10: D49.2 -right temporal scalp and mid back, r/o dysplastic nevi vs irritated nevi -plan to do biopsies in 1 month due to upcoming vacation Hay Anton PA-C Return in about 1 month (around 11/25/2022). documented in this encounter [facility] 01-12-2022 Miscellaneous Notes Referral, face sheet and office notes faxed to Dr. Hagen office. They will call patient to schedule. Patient was informed of this at her appt the other day documented in this encounter [facility] 01-12-2022 Note HNO ID: [id number] Author: Glynn Contreras APRN.SENIOR COMPUTER SPECIALIST Service: ? Author Type: Nurse Practitioner Type: Progress Notes Filed: 01/12/2022 9:13 AM Note Text: Manish Barron is a 31 year old female who presents Patient presents with: Sinus Problem Overview Notes of Problems Addressed This Visit ENT Bacterial sinusitis - Primary Patient developed symptoms of nasal congestion, runny nose 1 week ago. She does have seasonal allergies. She did have a sore throat for 1-2 days but not anymore. Now having sinus pressure and purulent drainage. Patient denies fever, fatigue, chills, headache, SOB, chest pain, cough, N/V/D, abdominal pain, dizziness, or loss of taste or smell. She has been using cory OTC. has cold as well. Patient states she is in the process of trying to get . Relevant Medications amoxicillin (AMOXIL) 875 mg tablet fluticasone (FLONASE) 50 mcg/actuation nasal spray Other Relevant Orders CONSULT TO ENT Other Visit Diagnoses Seasonal allergic rhinitis, unspecified trigger Relevant Orders CONSULT TO ENT REVIEW OF SYSTEMS See HPI BP 110/73 Pulse 67 Temp (Src) 97.5 (Oral) Ht 5' 9.016 (1.75m) Wt 144 lb (65.3kg) SpO2 100% BMI 21.26 kg/(m2). Physical Exam General: Cooperative, no acute distress, alert, well nourished, well developed Integumentary: No rashes, color normal, normal moisture Head and Neck: No lymphadenopathy, neck supple, no thyroid enlargement or nodules, non-tender HEENT: Eyes-sclera normal. Ears-Normal external, non-tender to palpation, canals normal bilaterally, no drainage or narrowing. TMs normal (Crystal. Good cone of light. No bulging, perforation, or inflammation). Nose-septum midline, mucosa inflamed, purulent discharge, turbinates reddened and inflamed, frontal sinuses tender to palpation, and maxillary sinuses tender to palpation. No overlying swelling. Throat-mucous membranes moist, oropharynx normal, tonsils normal (no erythema, hypertrophy, or exudate) Chest and Lungs: Respirations easy and non-labored. No use of accessory muscles. ASSESSMENT/PLAN: 1. Bacterial sinusitis - ICD9: 473.9, 041.9, ICD10: J32.9, B96.89 (primary diagnosis) Instructed to increase fluid intake, warm salt water gargles, rest. Educated on new prescriptions. Patient verbalizes understanding of discharge instructions, and in agreement with treatment plan. Agrees to call the office if symptoms do not improve or they worsen. - AMOXICILLIN 875 MG TABLET - FLUTICASONE PROPIONATE 50 MCG/ACTUATION NASAL SPRAY,SUSPENSION - CONSULT TO ENT 2. Seasonal allergic rhinitis, unspecified trigger - ICD9: 477.9, ICD10: J30.2 - CONSULT TO ENT Glynn Contreras I reviewed her past medical, surgical, social, and family histories today and updated chart. Allergies, chronic medications, and supplements were also reviewed and the list is now up to date. Health maintenance has been discussed. [facility] 01-12-2022 History of Presen t illness Narrative Manish Barron is a 31 year old female who presents Patient presents with: Sinus Problem Overview Notes of Problems Addressed This Visit ENT Bacterial sinusitis - Primary Patient developed symptoms of nasal congestion, runny nose 1 week ago. She does have seasonal allergies. She did have a sore throat for 1-2 days but not anymore. Now having sinus pressure and purulent drainage. Patient denies fever, fatigue, chills, headache, SOB, chest pain, cough, N/V/D, abdominal pain, dizziness, or loss of taste or smell. She has been using cory OTC. has cold as well. Patient states she is in the process of trying to get . Relevant Medications amoxicillin (AMOXIL) 875 mg tablet fluticasone (FLONASE) 50 mcg/actuation nasal spray Other Relevant Orders CONSULT TO ENT Other Visit Diagnoses Seasonal allergic rhinitis, unspecified trigger Relevant Orders CONSULT TO ENT REVIEW OF SYSTEMS See HPI BP 110/73 Pulse 67 Temp (Src) 97.5 (Oral) Ht 5' 9.016 (1.75m) Wt 144 lb (65.3kg) SpO2 100% BMI 21.26 kg/(m^2). Physical Exam General: Cooperative, no acute distress, alert, well nourished, well developed Integumentary: No rashes, color normal, normal moisture Head and Neck: No lymphadenopathy, neck supple, no thyroid enlargement or nodules, non-tender HEENT: Eyes-sclera normal. Ears-Normal external, non-tender to palpation, canals normal bilaterally, no drainage or narrowing. TMs normal (Crystal. Good cone of light. No bulging, perforation, or inflammation). Nose-septum midline, mucosa inflamed, purulent discharge, turbinates reddened and inflamed, frontal sinuses tender to palpation, and maxillary sinuses tender to palpation. No overlying swelling. Throat-mucous membranes moist, oropharynx normal, tonsils normal (no erythema, hypertrophy, or exudate) Chest and Lungs: Respirations easy and non-labored. No use of accessory muscles. ASSESSMENT/PLAN: 1. Bacterial sinusitis - ICD9: 473.9, 041.9, ICD10: J32.9, B96.89 (primary diagnosis) Instructed to increase fluid intake, warm salt water gargles, rest. Educated on new prescriptions. Patient verbalizes understanding of discharge instructions, and in agreement with treatment plan. Agrees to call the office if symptoms do not improve or they worsen. - AMOXICILLIN 875 MG TABLET - FLUTICASONE PROPIONATE 50 MCG/ACTUATION NASAL SPRAY,SUSPENSION - CONSULT TO ENT 2. Seasonal allergic rhinitis, unspecified trigger - ICD9: 477.9, ICD10: J30.2 - CONSULT TO ENT Glynn Contreras I reviewed her past medical, surgical, social, and family histories today and updated chart. Allergies, chronic medications, and supplements were also reviewed and the list is now up to date. Health maintenance has been discussed. documented in this encounter [facility] 12-31-2021 Miscellaneous Notes Patient notified. ----- Message from Glynn Contreras APRN.SENIOR COMPUTER SPECIALIST sent at 12/30/2021 5:59 PM EDT ----- Thyroid level is normal documented in this encounter [facility] 10-14-2021 Instructions Samara Melchor MA - 10/14/2021 4:04 PM EDT SUN PROTECTION How to use Sunscreen Pick one that protects against UVA and UVB rays (check the label) Apply SPF 30 each day Use SPF 30-45+ for longer sun exposure, like swimming or exercising in the sun Put it by your toothbrush, razor or crossword puzzle maker, and make it part of your daily routine Wear a water resistant sunscreen when swimming Apply to dry skin 15-30 minutes before going outside Re-apply every 2 hours and after swimming, sweating and/or towel drying Use one ounce (the size of a shot glass or small egg) to cover entire adult body Other ways to protect your skin from the sun Wear UV protective sunglasses, a hat with a 4 inch brim and sun protective clothing UPF 50, such as Coolibar, UV Skinz, [place], [place] and Under [place]. When possible, stay out of the sun when the rays are the strongest (between 11 am and 3 pm) Remember that sun exposure adds up throughout one's lifetime and every day exposure like walking the dog or gardening can lead to long-term skin damage Wear sunscreen, even when it is cloudy because 80% of sun rays still come through [place] Sunscreens are currently under review by the FDA. Do not inhale sprays or spray directly into face. Do not use near open flames as they are flammable. Consumer Report Best Picks UP and UP SPF 30-Target store brand NO AD-with Aloe and Vitamin E SPF 45 Equate Baby SPF 50 Playing Sports and Sweating (Non-[place]) Coppertone Sport Ultra Sweat-proof SPF 30 [place] or Gel (doesn't sting eyes) Banana Boat [place] Oil Free-For Acne Prone Skin Bull Frog Quick Gel SPF 30 Shade Sun Block Oil-Free Gel SPF 30 Neutrogena Healthy Defense Oil-Free Sun block SPF 30 or 45 Protection for Eye Area (Sticks) Aveeno Baby Natural protection Mineral Block Stick SPF 50 Bull Frog Quick Stick SPF 36 Neutrogena Sun Block Stick SPF 30 Children (3 years and Older) Foster's Baby Daily Face and Body Lotion SPF 40 Neutrogena Pure and Free Baby Sun Block Lotion SPF 60+ Coppertone Kids SPF 50 Neutrogena Water guard Kids Sun Block Babies (6-36 Months) and Anyone with Sensitive Skin Vanicream products Aveeno Natural Skin Protection Mineral Block SPF 30 Blue Lizard Neutrogena Sheer Zinc SPF 50 Neutrogena Pure & Free Any chemical free block with zinc oxide or titanium dioxide (check label) Babies under the age of 6 months should not be exposed to the sun Dermatology Providers' Favorites for Daily Use Aveeno Positively Radiant SPF 30 CeraVe AM SPF 30 Cetaphil Oil Control SPF 30 Eucerin Everyday Protection SPF 30 Neutrogena Healthy Defense SPF 55 Neutrogena Ultra Sheer SPF 55 and 70 Oil of Olay Complete SPF 30 documented in this encounter [facility] 10-14-2021 History of Presen t illness Narrative This is a 31 year old White female without a personal history of skin cancer who presents today for a full skin exam. Concerned with a mole on her right groin. She states it has been there for years. She reports it has changed in size, color, and shape. She states it feels rough and she can almost scratch it off. Denies any other growing or changing lesions, lesions which have been bleeding or itching, or any other lesions of concern today. Patient is engaging in sun protective measures. Patient is performing self-skin examinations. ALLERGIES No Known Allergies No current outpatient medications on file. No current facility-administered medications for this visit. PAST MEDICAL HISTORY Diagnosis Date Known health problems: none PAST PERSONAL SKIN PROBLEMS:None FAMILY HISTORY Problem Relation Age of Onset No Known Problems Mother No Known Problems Father Social History Socioeconomic History Marital status: Spouse name: Not on file Number of children: Not on file Years of education: Not on file Highest education level: Not on file Occupational History Not on file Social Needs Financial resource strain: Not on file Food insecurity: Worry: Not on file Inability: Not on file Transportation needs: Medical: Not on file Non-medical: Not on file Tobacco Use Smoking status: Never Smoker Smokeless tobacco: Never Used Substance and Sexual Activity Alcohol use: No Drug use: No Sexual activity: Not on file Lifestyle Physical activity: Days per week: Not on file Minutes per session: Not on file Stress: Not on file Relationships Social connections: Talks on phone: Not on file Gets together: Not on file Attends baptism service: Not on file Active member of club or organization: Not on file Attends meetings of clubs or organizations: Not on file Relationship status: Not on file Intimate partner violence: Fear of current or ex partner: Not on file Emotionally abused: Not on file Physically abused: Not on file Forced sexual activity: Not on file Other Topics Concerns: Not on file Social History Narrative Not on file REVIEW OF SYSTEMS: Patient feels well and denies any recent fevers, chills, or nightsweats. PHYSICAL EXAM BP 119/75 Ht 5' 9 (1.75m) Wt 142 lb 1.6 oz (64.5kg) BMI 20.97 kg/(m^2). General appearance: Well appearing, alert, in no acute distress, well-hydrated, well nourished. Skin: Total body skin examination performed. All areas examined including: scalp, face, conjunctiva/eyelids, lips/mouth, neck, chest, abdomen, back, left upper extremity, right upper extremity, digits/nails, left lower extremity, right lower extremity. -several medium brown well-circumscribed papules of face, trunk and extremities -many scott macules with normal pigmentation of face, trunk and extremities -medium brown waxy papule of right groin ASSESSMENT/PLAN: 1. Multiple benign nevi - ICD9: 216.9, ICD10: D22.9 (primary diagnosis) -trunk and extremities -benign, patient reassured -Recommend self-monitoring of lesions for ABCDE changes, discussed with patient -recommend diligent sun protection when outdoors 2. 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 Seborrheic keratosis - ICD9: 702.19, ICD10: L82.1 -right groin -benign, patient reassured Hay Anton PA-C Return in about 1 year (around 10/14/2022). documented in this encounter [facility] 08-12-2021 Miscellaneous Notes Antibiotic not appropriate to refill Pharmacy faxes requesting refill: Pending Prescriptions Disp Refills AZITHROMYCIN 250 MG TABLET 6 tablet 0 Sig: TAKE 2 TABLETS BY MOUTH ON DAY 1, THEN 1 TABLET DAILY ON DAYS 2 THROUGH 5. LEONARDO: No Date of last visit:07/29/2021 Phone #: [phone] (home) [phone] (work) [phone] (cell) The patients preferred pharmacy has been captured for this encounter? yes documented in this encounter [facility] 07-29-2021 History of Presen t illness Narrative Patient has consented to patient-provider interaction via virtual visit for the medical decision making documented in this encounter via real-time [employer] zoom. Time Spent: 11-20 minutes Manish Barron is a 31 year old female who presents Patient presents with: Illness Overview Notes of Problems Addressed This Visit Neurology Headache, unspecified headache type - Primary 5 days ago patient developed symptoms of sore throat. She used some tea and ibuprofen and it helped. The past few days developed headache, runny nose, nasal congestion. Having sinus pressure and teeth hurting. Patient denies fever, fatigue, chills, SOB, chest pain, cough, N/V/D, abdominal pain, dizziness, or loss of taste or smell. She has had her covid vaccines but no flu. Other Visit Diagnoses Sore throat Relevant Medications azithromycin (ZITHROMAX) 250 mg tablet Runny nose Relevant Medications azithromycin (ZITHROMAX) 250 mg tablet Nasal congestion Relevant Medications azithromycin (ZITHROMAX) 250 mg tablet Sinus pressure Relevant Medications azithromycin (ZITHROMAX) 250 mg tablet REVIEW OF SYSTEMS See HPI ASSESSMENT/PLAN: 1. Headache, unspecified headache type - ICD9: 784.0, ICD10: R51.9 (primary diagnosis) Sounds like URI versus start of sinus infection. Start Z-pack. Instructed to increase fluid intake, warm salt water gargles, rest, mucinex OTC, probiotic or 2 activia yogurts daily while on antibiotic, tylenol/ibuprofen for fever/pain. Educated on new prescriptions. Patient verbalizes understanding of discharge instructions, and in agreement with treatment plan. Agrees to call the office if symptoms do not improve or they worsen. 2. Sore throat - ICD9: 462, ICD10: J02.9 - AZITHROMYCIN 250 MG TABLET 3. Runny nose - ICD9: 784.99, ICD10: R09.89 - AZITHROMYCIN 250 MG TABLET 4. Nasal congestion - ICD9: 478.19, ICD10: R09.81 - AZITHROMYCIN 250 MG TABLET 5. Sinus pressure - ICD9: 478.19, ICD10: J34.89 - AZITHROMYCIN 250 MG TABLET Glynn Contreras I reviewed her past medical, surgical, social, and family histories today and updated chart. Allergies, chronic medications, and supplements were also reviewed and the list is now up to date. Health maintenance has been discussed. documented in this encounter [facility] Diagnosis Sore throat Acute pharyngitis Runny nose Other diseases of nasal cavity and sinuses Nasal congestion Other diseases of nasal cavity and sinuses Sinus pressure Other diseases of nasal cavity and sinuses [facility] Diagnosis Multiple benign nevi- Primary Benign neoplasm of skin, site unspecified Solar lentiginosis Other dyschromia Seborrheic keratosis Other seborrheic keratosis [facility] Diagnosis Bacterial sinusitis- Primary Unspecified sinusitis (chronic) Seasonal allergic rhinitis, unspecified trigger [facility] Diagnosis Multiple benign nevi- Primary Benign neoplasm of skin, site unspecified Solar lentiginosis Other dyschromia Inflamed seborrheic keratosis Neoplasm of unspecified behavior of bone, soft tissue, and skin [facility] Diagnosis Neoplasm of unspecified behavior of bone, soft tissue, and skin- Primary Inflamed seborrheic keratosis [facility] Diagnosis Sore throat- Primary Acute pharyngitis documented in this encounter [facility] Summary Purpose Family History No Family History Records FoundNo Family History Records FoundNo Family History Records FoundNo Family History Records FoundNo Family History Records FoundNo Family History Records FoundNo Family History Records FoundNo Family History Records Found Advance Directives No Advanced Directives Records FoundNo Advanced Directives Records FoundNo Advanced Directives Records FoundNo Advanced Directives Records FoundNo Advanced Directives Records FoundNo Advanced Directives Records FoundNo Advanced Directives Records FoundNo Advanced Directives Records Found Reason for Referral Specialty Diagnoses / Procedures Referred By Faviola wyman Referred To Contact Ent - Otolaryngology Diagnoses Bacterial sinusitis Seasonal allergic rhinitis, unspecified trigger Procedures CONSULT TO ENT OFFICE/OUTPATIENT [facility] 60-74 MINUTES Glynn Contreras, AGRICULTURE LABORER.SENIOR COMPUTER SPECIALIST [address] [place] [address] Referral ID Status Reason Start Date Expiration Date Visits Requested Visits Authorized [id number] Authorized PCP Requested Referral 01/12/2022 01/12/2023 1 1 Medications Administered Section Inactive Administered Medications - up to 3 most recent administrations Medication Order MAR Action Action Date Dose Rate Site lidocaine 1%-EPINEPHrine 1:100,000 1 mL injection 1 mL, OTHER, ONCE, 1 dose, On Tue11/24/22 at 0930 Given by LIP 11/24/2022 9:24 AM EDT 1 mL Ot her Additional Source Comments INFORMATION SOURCE (unrecogn ized section and content) DATE CREATED AUTHOR AUTHOR'S ORGANIZ ATION 11/18/2019 [employer] [facility] DATE CREATED AUTHOR AUTHOR'S ORGANIZ ATION 12/22/2019 [facility] DATE CREATED AUTHOR AUTHOR'S ORGANIZ ATION 03/19/2020 [facility] DATE CREATED AUTHOR AUTHOR'S ORGANIZ ATION 11/30/2022 [facility] DATE CREATED AUTHOR AUTHOR'S ORGANIZ ATION 12/01/2022 [facility] DATE CREATED AUTHOR AUTHOR'S ORGANIZ ATION 01/08/2023 [facility] DATE CREATED AUTHOR AUTHOR'S ORGANIZ ATION 04/05/2023 [facility] Source Comments (unrecognize d section and content) In the event this informatio n is protected by the Federal Confidentiality of Alcohol and Drug Abuse Patient Records regulations: The Federal rules restrict any use of the information to criminally investigate or prosecute any alcohol or drug abuse patient.[facility] the event this information is protected by the Federal Confidentiality of Alcohol and Drug Abuse Patient Records regulations: The Federal rules restrict any use of the information to criminally investigate or prosecute any alcohol or drug abuse patient.[facility] the event this information is protected by the Federal Confidentiality of Alcohol and Drug Abuse Patient Records regulations: The Federal rules restrict any use of the information to criminally investigate or prosecute any alcohol or drug abuse patient.[facility] the event this information is protected by the Federal Confidentiality of Alcohol and Drug Abuse Patient Records regulations: The Federal rules restrict any use of the information to criminally investigate or prosecute any alcohol or drug abuse patient.[facility] the event this information is protected by the Federal Confidentiality of Alcohol and Drug Abuse Patient Records regulations: The Federal rules restrict any use of the information to criminally investigate or prosecute any alcohol or drug abuse patient.[facility] the event this information is protected by the Federal Confidentiality of Alcohol and Drug Abuse Patient Records regulations: The Federal rules restrict any use of the information to criminally investigate or prosecute any alcohol or drug abuse patient.[facility] Center[facility] the event this information is protected by the Federal Confidentiality of Alcohol and Drug Abuse Patient Records regulations: The Federal rules restrict any use of the information to criminally investigate or prosecute any alcohol or drug abuse patient.[facility] Center[facility] the event this information is protected by the Federal Confidentiality of Alcohol and Drug Abuse Patient Records regulations: The Federal rules restrict any use of the information to criminally investigate or prosecute any alcohol or drug abuse patient.[facility] Center[facility] the event this information is protected by the Federal Confidentiality of Alcohol and Drug Abuse Patient Records regulations: The Federal rules restrict any use of the information to criminally investigate or prosecute any alcohol or drug abuse patient.[facility] Center[facility] the event this information is protected by the Federal Confidentiality of Alcohol and Drug Abuse Patient Records regulations: The Federal rules restrict any use of the information to criminally investigate or prosecute any alcohol or drug abuse patient.[facility] Center[facility] the event this information is protected by the Federal Confidentiality of Alcohol and Drug Abuse Patient Records regulations: The Federal rules restrict any use of the information to criminally investigate or prosecute any alcohol or drug abuse patient.[facility] Center[facility] the event this information is protected by the Federal Confidentiality of Alcohol and Drug Abuse Patient Records regulations: The Federal rules restrict any use of the information to criminally investigate or prosecute any alcohol or drug abuse patient.[facility] Center[facility] the event this information is protected by the Federal Confidentiality of Alcohol and Drug Abuse Patient Records regulations: The Federal rules restrict any use of the information to criminally investigate or prosecute any alcohol or drug abuse patient.[facility] Center[facility] the event this information is protected by the Federal Confidentiality of Alcohol and Drug Abuse Patient Records regulations: The Federal rules restrict any use of the information to criminally investigate or prosecute any alcohol or drug abuse patient.[facility] Reason for Visit (unrecogniz ed section and content) Reason Onset Date Comments Refill Request Refill Request 09/11/2021 Reason Comments Full Body Skin Check Reason Comments Results Labs Reason Comments Sinus Problem Reason Comments Internal Referrals/resources Ent Reason Comments Skin Check Reason Comments Follow Up Reason Comments Pathology Report Reason Comments Sore Throat She has a sore throa t that started on 03/21/2023. She also has a slight headache, congestion, runny nose, ear pressure, fatigue. Care Teams (unrecognized sec tion and content) Lunchroom Monitor Relationship Specialty Start Date End Date Minna Marks MD [address] [place] [address] [place] [address] PCP - General Family Practice 01/02/19 Lunchroom Monitor Relationship Specialty Start Date End Date Minna Marks MD [address] [place], [place] [id number] PCP - General Family Practice 01/02/19 Lunchroom Monitor Relationship Specialty Start Date End Date Minna Marks MD [address] [place] [address] PCP - General Family Practice 01/02/19 Lunchroom Monitor Relationship Specialty Start Date End Date Minna Marks MD [address] [place] [address] PCP - General Family Practice 01/02/19 Lunchroom Monitor Relationship Specialty Start Date End Date Minna Marks MD [address] [place] [address] PCP - General Family Practice 01/02/19 Lunchroom Monitor Relationship Specialty Start Date End Date Minna Marks MD [address] [place] [address] PCP - General Family Practice 01/02/19 Lunchroom Monitor Relationship Specialty Start Date End Date Minna Marks MD [address] [place] [address] PCP - General Family Medicine 01/02/19 Lunchroom Monitor Relationship Specialty Start Date End Date Minna Marks MD [address] [place] [address] PCP - General Family Medicine 01/02/19 Lunchroom Monitor Relationship Specialty Start Date End Date Minna Marks MD [address] [place] [address] PCP - General Family Medicine 01/02/19 Lunchroom Monitor Relationship Specialty Start Date End Date Minna Marks MD [address] [place], [place] [id number] PCP - [facility] 01/02/19 Lunchroom Monitor Relationship Specialty Start Date End Date Minna Marks MD [address] [place], [place] [id number] PCP - [facility] 01/02/19 Lunchroom Monitor Relationship Specialty Start Date End Date Minna Marks MD [address] [place], [place] [id number] PCP - [facility] 01/02/19 FOR RECORDS PERTAINING TO PATIENTS WHO ARE OR HAVE BEEN ENROLLED IN A CHEMICAL DEPENDENCY/SUBSTANCEABUSE PROGRAM, SOME INFORMATION MAY BE OMITTED. This clinical summary was aggregated from multiple sources. Caution should be exercised in using it in the provision of clinical care. This summary normalizes information from multiple sources, and as a consequence, information in this document may materially change the coding, format and clinical context of patient data. In addition, data may be omitted in some cases. CLINICAL DECISIONS SHOULD BE BASED ON THE PRIMARY CLINICAL RECORDS. [facility] [employer] [facility]. provides no warranty or guarantee of the accuracy or completeness of information in this document.
== END | disposition home or self-care (01) ==
LOC: US 15:54
PROVIDERS: PCP Family Medicine; Referring Provider Obstetrics & Gynecology; Visit Provider Obstetrics & Gynecology
DX: N92.1 Excessive and frequent menstruation with irregular cycle (principal)
CPT/HCPCS: 76830; 76856

== ENCOUNTER → 2024-08-23 | Outpatient (CLI) | payer BC, SELFPAY ==
[2024-08-23 12:22] LABS: Absolute Lymphocyte Count 1.74 X10^3/uL (0.83-4.51); Absolute Neutrophil Count 6.2 X10^3/uL (2.0-7.7); Basophil# 0.05 X10^3/uL; Basophil% 0.6 % (0-1); Eosinophil# 0.15 X10^3/uL; Eosinophils% 1.7 % (0-5); Hematocrit 40.6 % (37-47); Hemoglobin 14.3 g/dL (12.0-15.0); Lymphocyte # 1.74 X10^3/ul (0.83-4.51); Lymphocyte % 19.4 % (19-41); Mean Corp Hgb Conc 35.2 g/dL (32-36); Mean Corpuscular Hgb 32.7 pg (27.0-32.0); Mean Corpuscular Volume 92.9 fL (81-99); Mean Platelet Vol. 10.3 fl (6.2-12.0); Monocyte# 0.73 X10^3/uL; Monocyte% 8.1 % (0-10); NRBC Flagged by Analyzer 0 % (0-5); Neutrophil # 6.23 X10^3/uL (2.7-7.7); Neutrophil % 69.5 % (47-70); Platelet Count 296 K/mm3 (150-450); RBC Distribution Width CV 12.2 % (11.6-14.6); Red Blood Count 4.37 M/mm3 (4.2-5.4)
[2024-08-23 13:31] LABS: HIV Nonreactive (Nonreactive); Hepatitis B Surface Antigen Nonreactive (Nonreactive); Hepatitis C Antibody Nonreactive (Nonreactive); Rubella IgG REAC (Nonreactive); Syphilis Antibodies Nonreactive (Nonreactive)
[2024-08-24 08:08] LABS: PROGESTERONE 29.6 ng/mL (.)
[2024-08-24 23:07] LABS: Chlamydia By Nucleic Acid AMP Negative (Negative); Gonococcus By Nucleic Acid AMP Negative (Negative)
== END | disposition home or self-care (01) ==
PROVIDERS: Obstetrics & Gynecology; PCP Family Medicine; Visit Provider Advanced Practice Midwife
DX: O99.281 Endocrine, nutritional and metabolic diseases complicating pregnancy, first trimester (principal); E07.9 Disorder of thyroid, unspecified; Z3A.00 Weeks of gestation of pregnancy not specified; Z12.4 Encounter for screening for malignant neoplasm of cervix; Z86.19 Personal history of other infectious and parasitic diseases
CPT/HCPCS: 36415; 84144; 84439; 84443; 85025; 86703; 86762; 86780; 86803; 86850; 86900; 86901; 87086; 87340; 87491; 87591; 87624; 88175; G0145

== ENCOUNTER → 2024-12-12 | Outpatient (CLI) | payer BC, SELFPAY ==
[2024-12-12 16:48] LABS: Hematocrit 36.1 % (37-47); Hemoglobin 12.4 g/dL (12.0-15.0); Immature Granulocytes Count 0.280 X10^3/uL (0.0-0.0); Mean Corp Hgb Conc 34.3 g/dL (32-36); Mean Corpuscular Volume 94.8 fL (81-99); Mean Platelet Vol. 10.5 fl (6.2-12.0); NRBC Flagged by Analyzer 0 % (0-5); Platelet Count 253 K/mm3 (150-450); RBC Distribution Width CV 12.3 % (11.6-14.6); RBC Distribution Width SD 42.7 fl (35.1-43.9); Red Blood Count 3.81 M/mm3 (4.2-5.4); White Blood Count 11.9 K/mm3 (4.4-11.0)
[2024-12-12 17:30] LABS: Glucose Challenge Gest 1H 50g 123 mg/dL (70-140); HIV Nonreactive (Nonreactive); Syphilis Antibodies Nonreactive (Nonreactive)
== END | disposition home or self-care (01) ==
PROVIDERS: PCP Family Medicine; Visit Provider Obstetrics & Gynecology
DX: O09.91 Supervision of high risk pregnancy, unspecified, first trimester (principal); Z3A.00 Weeks of gestation of pregnancy not specified; Z13.1 Encounter for screening for diabetes mellitus
CPT/HCPCS: 36415; 82950; 85025; 86703; 86780

== ENCOUNTER → 2025-02-21 | Outpatient (CLI) | payer BC, SELFPAY | END | disposition home or self-care (01) | LOC: LABSPEC 11:51 | PROVIDERS: PCP Family Medicine; Visit Provider Obstetrics & Gynecology | DX: O09.91 Supervision of high risk pregnancy, unspecified, first trimester (principal); Z3A.00 Weeks of gestation of pregnancy not specified | CPT/HCPCS: 87081 ==

== ENCOUNTER → 2025-02-27 | Outpatient (CLI) | payer BC, SELFPAY ==
--- NOTE | 2025-02-27 16:02 | US_ITS ---
PROCEDURE: US/OB Limited With Biometrics
== END | disposition home or self-care (01) ==
LOC: US 16:01
PROVIDERS: PCP Family Medicine; Referring Provider Obstetrics & Gynecology; Visit Provider Obstetrics & Gynecology
DX: O09.513 Supervision of elderly primigravida, third trimester (principal); Z3A.36 36 weeks gestation of pregnancy
CPT/HCPCS: 76816

== ENCOUNTER 2025-03-07 18:01 | Inpatient (IN) | payer BC, SELFPAY ==
[2025-03-07 18:03] VITALS: BMI 30.7
[2025-03-07 18:46] LABS: Hematocrit 37.6 % (37-47); Hemoglobin 13.2 g/dL (12.0-15.0); Immature Granulocytes Count 0.220 X10^3/uL (0.0-0.0); Mean Corp Hgb Conc 35.1 g/dL (32-36); Mean Corpuscular Volume 92.2 fL (81-99); Mean Platelet Vol. 10.3 fl (6.2-12.0); NRBC Flagged by Analyzer 0 % (0-5); Platelet Count 213 K/mm3 (150-450); RBC Distribution Width CV 12.5 % (11.6-14.6); RBC Distribution Width SD 41.9 fl (35.1-43.9); Red Blood Count 4.08 M/mm3 (4.2-5.4); White Blood Count 12.1 K/mm3 (4.4-11.0)
--- NOTE | 2025-03-07 18:48 | PCM.HP.OB ---
HPI - General General Date of Admission: 03/07/25 HPI Narrative MANISH LEO, is a 35 y/o @ 37 weeks 6 days who presents to L&D for IOL due to pre-eclampsia diagnosed today in office. Her pressures are not in severe range, but prot:cr was 330. Other labs were normal. She denies headaches, visual changes, or epigastric pain. Maternal Data Information POLA Calculator Estimated Delivery Date Method Current WG Current Estimate 03/22/25 LMP (Certain) 37w 6d PFSH [facility] Medical History (Updated 03/07/25 @ 18:[address] Padma Gutierrez, DO) HPV (human papilloma virus) infection Thyroid disorder Autoimmune disease Pre-eclampsia Endometriosis determined by laparoscopy Dysmenorrhea Infertility Home Medications ?Medication ?Instructions ?Recorded ?Last Taken ?Type docosahexaenoic acid 200 mg mg PO 08/07/24 03/07/25 History capsule ( DHA) levothyroxine 75 mcg tablet 75 mcg PO DAILY hypothyroid 08/07/24 Unknown History levothyroxine 112 mcg capsule 112 mcg PO .sun hypothyroid 08/23/24 Unknown History docusate sodium 100 mg capsule 100 mg PO QDAY PRN constipation 01/23/25 02/25/25 History (Colace) Allergy/AdvReac Type Severity Reaction Status Date / Time cefaclor (From Ceclor) Allergy Mild other Verified 03/07/25 18:19 Family History Father Sarcoid S/P mitral valve repair Mother Osteoporosis Endometriosis Grandfather Skin cancer Bone cancer Grandmother Osteoporosis Asthma COPD (chronic obstructive pulmonary disease) Grandfather Myocardial infarction Surgical History H/O laparoscopy Hx of wisdom tooth extraction History of hysterosalpingogram Ganglion cyst of left groin ACL (anterior cruciate ligament) tear Social History adopted: No household members: spouse current occupational status: employed 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 - [employer] current occupational exposures/hazards: No pets and animals: Yes (Not managing litterbox) pets and animals: cat(s) history of recent travel: Yes ( - June) out of state: No out of country: Yes sexually active: Yes Smoking Status: Never smoker alcohol intake: current alcohol intake frequency: holidays/special occasions only details: Not while substance use type: does not use diet: lactose free well-balanced diet: daily or most days caffeine: No eating out: 1-3 times/week during the past year weight has: remained stable what type of physical activity do you participate in: walking and weight training frequency: 3-4 times per week duration: 15-30 minutes/day julieta/roman catholic: None seatbelt use: always do you feel safe at home: Yes additional 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 history: : 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 1 Elective abortions Hx Para 0 Spontaneous abortions 0 Hx # Term Pregnancies Ectopic pregnancies Hx # Pregnancies Multiple births # of living children Visit Details Expected Delivery Route/Plan Labor Preferences- CB/BF classes: yes labor support person: Scot labor intervention preferences: [] pain management options preferred: limited; cut cord/dad catch: yes : yes PP control planned: discussed discussed possible routes of delivery and associated risks: [] special requests: [] Plans Covid status: [] Flu vaccine: [] Tdap vaccine: given Rhogam: na LARC form signed: yes movement and labor precautions reviewed. Problem list reviewed and updated with the most current plan of care details and appropriate orders placed. Relevant counseling for the gestational age provided. Continue routine care and follow up unless otherwise noted in visit notes/problem list details OB Flowsheet Initial Weight: 157 lb Date <del>?</del> EGA Weight BP Urine Prot <del>?</del> Glucose FHR FuHt Pres Dilation <del>?</del> Effaced St Visit Note 08/23/24 <del>?</del> 9w 6d 157 lb (+0 oz) 126/84 <del>?</del> 169 <del>?</del> KW- CRL cons with dates. declines NIPT. Hx of infertility but this was spontaneous . 09/19/24 <del>?</del> 13w 5d 162 lb (+5 lb) 131/76 Negative <del>?</del> Negative 165 <del>?</del> JV-questions answered today. plan 18 week anatomy with mfm. 10/19/24 <del>?</del> 18w 0d 170 lb 4 oz (+13 lb 4 oz) 113/74 Negative <del>?</del> Negative 140 <del>?</del> KW- no vb/lof/ctx. + flutters MFM scan scheduled. 11/16/24 <del>?</del> 22w 0d 176 lb 8 oz (+19 lb 8 oz) 118/76 Negative <del>?</del> Negative 140 <del>?</del> Sm- no vb lof good fm no reuglar ctx 12/12/24 <del>?</del> 25w 5d 183 lb 6 oz (+26 lb 6 oz) 122/73 Negative <del>?</del> Negative 146 26 <del>?</del> MH-No VB, LOF. Good FM. Larc. 28 wk labs pending. 12/26/24 <del>?</del> 27w 5d 188 lb (+31 lb) 124/72 Negative <del>?</del> Negative 145 28 <del>?</del> JV- no lof, vaginal bleeding, or dec fm. discussed vaccines. 01/09/25 <del>?</del> 29w 5d 190 lb 9 oz (+33 lb 9 oz) 121/75 Negative <del>?</del> Negative 130 30 <del>?</del> KW- no vb/lof/ctx. good fm. Tdap today. CBE classes discussed. 01/23/25 <del>?</del> 31w 5d 195 lb 8 oz (+38 lb 8 oz) 117/73 Negative <del>?</del> Negative 145 32 <del>?</del> Sm- no vb lof good fm no regular ctx 02/06/25 <del>?</del> 33w 5d 200 lb 7 oz (+43 lb 7 oz) 129/79 Negative <del>?</del> Negative 130 33 <del>?</del> SM- no vb lof good fm n oreuglar ctx 02/21/25 <del>?</del> 35w 6d 202 lb 8 oz (+45 lb 8 oz) 129/80 Negative <del>?</del> Negative 140 35 Cephalic <del>?</del> JV- no lof, vaginal bleeding or dec fm. plan reviewed. gbs collected. declines pelvic exam. 02/27/25 <del>?</del> 36w 5d 204 lb 4 oz (+47 lb 4 oz) 125/81 Negative <del>?</del> Negative 134 37 <del>?</del> JV- no lof, vaginal bleeding, or dec fm. 03/07/25 <del>?</del> 37w 6d 208 lb 6 oz (+51 lb 6 oz) 136/87 148/86 Negative <del>?</del> Negative 135 37 Cephalic <del>?</del> JV- JV- patient declines pelvic exam. no headaches or blurry vision, or ruq pain. sending PIH labs now due to repeat bp of 140's/90's. ROS Constitutional Constitutional: Denies change in weight, fatigue, fever(s), headache(s), poor appetite or weakness Eyes Eyes: Denies blurry vision, change in vision, seeing flashes or spots in vision ENT HEENT: Denies dizziness, headache(s), loss taste/smell or sore throat Cardiovascular Cardiovascular: Denies chest pain, dizziness, dyspnea, irregular heart rhythm, leg edema, palpitations, rapid heart rate or vomiting Respiratory/Chest Respiratory/Chest: Denies chest tightness, cough, dyspnea or breast pain Gastrointestinal Gastrointestinal: Denies abdominal pain, anorexia, constipation, cramping, diarrhea, hemorrhoids, vomiting or weight changes Genitourinary Genitourinary: Denies dysuria, flank pain, genital lesions, genital pain, urinary frequency or urinary urgency Musculoskeletal Musculoskeletal: Denies back pain, difficulty walking, joint pain, limited range of motion, muscle cramps or numbness Integumentary Integumentary: Denies lesions or unusual bruising Neurologic Neurologic: Denies abnormal movements, abnormal speech, dizziness, numbness, seizure-like activity or syncope Psychiatric Psychiatric: Denies anxiety, behavioral changes, change in appetite, change in libido, cognitive impairment, confusion, depression, difficulty concentrating, hallucinations or suicidal thoughts Endocrine Endocrinology: Denies excessive sweating, polydipsia or polyuria Hematologic/Lymphatic Hematologic/Lymphatic: Denies easy bleeding, easy bruising or lymphadenopathy Allergic/Immunologic Allergic/Immunologic: Denies itchy eyes, lip swelling, seasonal rhinorrhea, rhinitis, throat swelling, tongue swelling, eczemia, wheezing or asthma Vital Signs Vital Signs Vital Signs: Weight Weight: 208 lb Body Mass Index (BMI) 30.7 Physical Exam Const alert, oriented x3, no apparent distress and healthy appearing General Appearance: cooperative; Negative for anxious HEENT normocephalic Face and Sinus: normal facial exam Eyes EOMs intact bilaterally and no scleral icterus General Eye: normal appearance of both eyes Neck full ROM and supple Lymph Lymphatic: no lymphadenopathy noted Resp normal respiratory effort Effort and Inspection: able to speak in complete sentences Cardio regular rate GI soft to palpation and non-tender Inspection: gravid Palpation: soft; Negative for tender Narrative: cx is 1/50/-2 Back/Spine no CVA tenderness Extremity normal to inspection, full ROM and no clubbing, cyanosis or edema General Extremity: Negative for calf tenderness or edema Skin Lesions: no lesions Rashes: no rashes Psych mental status grossly normal Labs Labs Labs: Blood Type O POSITIVE Antibody Screen NEGATIVE Hct, (37-47) 37.6 % Hgb, (12.0-15.0) 13.2 g/dL Pap Smear Negative Obstetrics Ultrasound Syphilis Total Ab, (Nonreactive) Nonreactive Rubella IgG Antibody, (Nonreactive) REAC Hep Bs Antigen, (Nonreactive) Nonreactive Hepatitis C Antibody, (Nonreactive) Nonreactive Chlamydia DNA (RAMON), (Negative) Negative N.gonorrhoeae DNA (RAMON), (Negative) Negative HIV 1&2 Antibody, (Nonreactive) Nonreactive Glucose 1 Hr 50 gm, (70-140) 123 mg/dL Miscellaneous Test, (.) COMMENT Assessment & Plan (1) Mild pre-eclampsia: (2) Primigravida of advanced maternal age: COMMENT: growth US at 36 weeks delivery by 40, if goes to 41 recommend 2x weekly NSTs. 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 thyroid disease being managed by endocrine. saw RGI. Declines IUI and IVF at this time. normal/borderline sperm function. discussed interventions consider diagnostic laparoscopy or oral OI agents. (8) Endometriosis determined by laparoscopy: COMMENT: stage I PLAN: Plan Patient presents IOL, plan management for . The patient was given options for [place] balloon vs cytotec tonight and she chooses cytotec as mode of induction. Pain management: plans epidural. GBS negative. Management of any complications: see above I have reviewed the [facility] and made any clinically relevant updates.
[2025-03-07 18:53] VITALS: BP 133/80; PULSE 94
[2025-03-07 19:21] VITALS: BP 138/89; PULSE 87; RESP 16; TEMP 37.1; O2SAT 97
[2025-03-07 19:24] LABS: Syphilis Antibodies Nonreactive (Nonreactive)
[2025-03-07 23:31] VITALS: RESP 16; TEMP 36.4
[2025-03-07 23:32] VITALS: BP 113/69; PULSE 78
[2025-03-08] VITALS (35 sets, daily range): BP systolic 111–160; BP diastolic 59–94; PULSE 62–103; RESP 16–18; TEMP 36.4–37.3; O2SAT 87–100
--- NOTE | 2025-03-08 04:35 | PCM.PN.BLA ---
Progress Note patient is up and walking around room to use rest room. She states that contractions are getting stronger. She wants to try to avoid pitocin and requests membrane rupture current tracing: FHT: 130 Moderate variability reactive no decelerations category I tracing [place]: q 2 min Contractions cx 2/60/-2, membranes ruptured with large clear fluid reviewed tracing abnormalities since last note: no changes , earlier there were some variable decelerations A/P: IOL for pre-e. membranes ruptured. epidural prn
[2025-03-08] MEDS: Lactated Ringers 1,000 ML 999 ML IV (06:35)
[2025-03-08] MEDS: Lactated Ringers 1,000 ML 200 ML IV (07:22)
[2025-03-08] MEDS: fentaNYL-bupivacaine (epidural) 100 ML BAG EPIDURAL ×2 (07:48→11:47)
[2025-03-08] MEDS: Oxytocin 15 Units/NS 250ml 15 UNITS/250 ML IV.SOLN 2 UNITS IV (12:13)
[2025-03-08] MEDS: Oxytocin 15 Units/NS 250ml 15 UNITS/250 ML IV.SOLN 334 UNITS IV (13:50)
[2025-03-08] MEDS: Oxytocin 15 Units/NS 250ml 15 UNITS/250 ML IV.SOLN 83 UNITS IV (14:28)
--- NOTE | 2025-03-08 15:39 | EX.PCM.OBVAG ---
Assessment & Plan (1) Mild pre-eclampsia: (2) Primigravida of advanced maternal age: COMMENT: growth US at 36 weeks delivery by 40, if goes to 41 recommend 2x weekly NSTs. 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 thyroid disease being managed by endocrine. saw RGI. Declines IUI and IVF at this time. normal/borderline sperm function. discussed interventions consider diagnostic laparoscopy or oral OI agents. (9) Endometriosis determined by laparoscopy: COMMENT: stage I Maternal Data Information POLA Calculator Estimated Delivery Date Method Current WG Current Estimate 03/22/25 LMP (Certain) 38w 0d Final POLA: 03/22/25 Final POLA Source: LMP Gestational age: 38 weejs 0 days Vaginal Delivery Maternal Presentation Maternal Presentation: Medically Indicated Induction Type of Induction: Pitocin, Amniotomy and Cytotec Medical Reason for Induction: Preeclampsia, eclampsia Vaginal Delivery Information Procedure Performed: Spontaneous Vaginal Delivery Surgeon/Practitioner: Pdama Gutierrez Date of Procedure: 03/08/25 Pre-Procedure Diagnosis: Pre-eclampsia 37 weeks 6 days Post-Procedure Diagnosis: Pre-eclampsia 37 weeks 6 days Type of anesthesia: Epidural Estimated Blood Loss: 200cc Findings Description of procedure: Patient began pushing and delivered the head in the VIKY presentation. The head was delivered atraumatically. The anterior and posterior shoulders delivered without complication followed by the rest of the infant and the infant was placed on the maternal abdomen. Delayed cord clamping was employed for approximately 60 seconds. Cord was clamped and cut and gentle traction was applied to the cord and the placenta delivered spontaneously immediately following it was noted to be intact with three-vessel cord. The perineum and vagina were inspected and noted to have a 2nd degree perineal laceration repaired with a 2-0 vicryl. EBL was 200cc. Patient and tolerated delivery well. 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
--- NOTE | 2025-03-08 15:44 | DCINST_ITS ---
Discharge Instructions
--- NOTE | 2025-03-08 15:44 | PCM.DC ---
Discharge Instructions DC O2, CPAP, BIPAP needs Home O2 Discharge instructions: No Dressing / Incision Discharge Activity: Return to Normal Activity, May Not Drive (while taking narcotic pain medications.) and May Shower May resume sexual activity in: 4-6 weeks Dressing / Incision Call your doctor if your incision/area has: Continuous Slow Oozing, Sudden Increased Bleeding, Increased Pain/ Swelling, Increased Redness and Foul Smelling Discharge Follow Up Care Please Follow Up With: Padma Gutierrez, When: Call [phone] to make an appointment with your doctor in 6 weeks. If you had elevated blood pressure or 4th degree laceration, you will need to be seen in 2 weeks. Test Results: Test results from this visit will be discussed in further detail at your follow-up appointment, if applicable. Discharge Plan Admission Admit Date/Time: 03/07/25 18:01 Attending Provider: Padma Gutierrez Primary Care Provider: Minna Marks Discharge Orders/Prescriptions Prescriptions: No Action levothyroxine 75 mcg tablet 75 mcg PO DAILY Rx Instructions: Sundays -1.5tab, Tue-Tue 1 tab levothyroxine 112 mcg capsule 112 mcg PO .sun DHA 200 mg capsule PO docusate sodium [Colace] 100 mg capsule 100 mg PO QDAY PRN (Reason: constipation) Referrals / Follow Up: Minna Marks MD [Primary Care Provider, Family Practice]
[2025-03-08] MEDS: GLYCERIN/WITCH HAZEL (TUCKS) MED..PAD 1 EACH TOPICAL (19:48)
[2025-03-09 05:20] VITALS: BP 119/80; PULSE 72; RESP 18; TEMP 36.6; O2SAT 97
[2025-03-09 09:10] VITALS: BP 113/71; PULSE 66; RESP 16; TEMP 36.6
--- NOTE | 2025-03-09 09:29 | PCM.PN.OB ---
Subjective Subjective Patient doing well without complaints. Tolerating PO. Ambulating and voiding without difficulty. Feeding well. Denies chest pain, shortness of breath, calf pain/swelling, fevers, chills, lightheadedness. pressures are well controlled. Objective Data Objective Data Vital Signs: Vital Signs Temp Pulse Resp BP Pulse Ox O2 Del Method 98 F 66 16 113/71 97 Room Air 03/09/25 09:10 03/09/25 09:10 03/09/25 09:10 03/09/25 09:10 03/09/25 05:20 03/09/25 09:10 Oxygen Delivery Method Room Air Weight: 208 lb Body Mass Index (BMI) 30.7 Intake & Output: Intake and Output for Last 24 Hours 03/07/25 03/08/25 03/09/25 23:59 23:59 23:59 Intake Total 2286.86 / 2286.86 Output Total 2049 / 2049 Balance 236.86 / 236.86 Lab / Micro Data 03/07/25 18:25 ROS Constitutional Constitutional: Denies chills, fatigue, fever(s), poor appetite or weakness Eyes Eyes: Denies blurry vision, change in vision, seeing flashes or spots in vision ENT HEENT: Denies dizziness, headache(s), loss taste/smell or sore throat Cardiovascular Cardiovascular: Denies chest pain, dizziness, dyspnea, irregular heart rhythm, palpitations or rapid heart rate Respiratory/Chest Respiratory/Chest: Denies chest tightness, cough, dyspnea or breast pain Gastrointestinal Gastrointestinal: Denies abdominal pain, constipation or vomiting Genitourinary Genitourinary: Denies dysuria or flank pain Musculoskeletal Musculoskeletal: Denies difficulty walking, joint pain, limited range of motion or numbness Neurologic Neurologic: Denies abnormal movements, abnormal speech, dizziness, numbness, seizure-like activity or syncope Psychiatric Psychiatric: Denies anxiety, behavioral changes, change in appetite, confusion, depression or suicidal thoughts Physical Exam Const alert, oriented x3 and no apparent distress General Appearance: cooperative and comfortable Resp normal respiratory effort Cardio regular rate GI normal to inspection, nondistended, normoactive bowel sounds GI Narrative: uterus is firm below umbilicus Palpation: soft Back/Spine no CVA tenderness and thoraco-lumbar ROM normal Extremity normal to inspection, no clubbing, cyanosis or edema, no calf tenderness and no pedal edema Psych mental status grossly normal, thought process normal, cooperative, affect normal, speech normal, activity/motor behavior normal, denies homicidal ideation and denies suicidal ideation Assessment & Plan (1) Vaginal delivery: (2) Mild pre-eclampsia: (3) Primigravida of advanced maternal age: COMMENT: growth US at 36 weeks delivery by 40, if goes to 41 recommend 2x weekly NSTs. 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 thyroid disease being managed by endocrine. saw RGI. Declines IUI and IVF at this time. normal/borderline sperm function. discussed interventions consider diagnostic laparoscopy or oral OI agents. (8) Endometriosis determined by laparoscopy: COMMENT: stage I PLAN: Plan s/p PPD # 1 1. routine post delivery care 2. breast feeding- support given 3. rh positive 4. rubella immune 5. pre-e , pressures normal now. 6. plan for dc to home tomorrow
[2025-03-09] MEDS: SELF ADMINISTRATION OF MEDS 1 EACH NOTE (11:24)
[2025-03-09] MEDS: Benzocaine/Lanolin/Aloe Vera 85 GM Spray 1 SPRAY TOPICAL (11:24)
[2025-03-09] MEDS: GLYCERIN/WITCH HAZEL (TUCKS) MED..PAD 1 EACH TOPICAL (11:24)
[2025-03-09 14:23] VITALS: BP 121/79; PULSE 75; RESP 16
[2025-03-09] MEDS: Senna/Docusate Sodium 1 Tablet PO (16:49)
[2025-03-10 01:50] VITALS: BP 129/78; PULSE 60; RESP 16; TEMP 36.4; O2SAT 98
[2025-03-10] MEDS: GLYCERIN/WITCH HAZEL (TUCKS) MED..PAD 1 EACH TOPICAL (09:22)
[2025-03-10] MEDS: SELF ADMINISTRATION OF MEDS 1 EACH NOTE (09:23)
[2025-03-10 09:30] VITALS: BP 121/69; PULSE 82; RESP 16; TEMP 36.8
--- NOTE | 2025-03-10 10:40 | PCM.DC.SUM ---
Providers Date of Admission: 03/07/25 Primary Care Physician: Dr. Minna Marks MD Reason For Visit: VAGINAL DELIVERY Diagnosis Discharge Diagnosis (1) Vaginal delivery: Status: Acute Code(s): O80 - Encounter for full-term uncomplicated delivery (2) Mild pre-eclampsia: Status: Acute Code(s): O14.00 - Mild to moderate pre-eclampsia, unspecified trimester (3) Primigravida of advanced maternal age: Status: Acute Code(s): O09.519 - Supervision of elderly primigravida, unspecified trimester (4) Supervision of high-risk : Status: Acute Code(s): O09.90 - Supervision of high risk , unspecified, unspecified trimester Qualifiers: Trimester: first trimester Qualified Code(s): O09.91 - Supervision of high risk , unspecified, first trimester (5) MTHFR gene mutation: Status: Acute Code(s): Z15.89 - Genetic susceptibility to other disease (6) Thyroid disease: Status: Acute Code(s): E07.9 - Disorder of thyroid, unspecified (7) Infertility: Status: Acute (8) Endometriosis determined by laparoscopy: Status: Acute Code(s): N80.9 - Endometriosis, unspecified Plan s/p PPD # 1 1. routine post delivery care 2. breast feeding- support given 3. rh positive 4. rubella immune 5. pre-e , pressures normal now. 6. plan for dc to home tomorrow Medications at Discharge Home Medications docosahexaenoic acid 200 mg capsule ( DHA) mg PO 08/07/24 levothyroxine 75 mcg tablet 75 mcg PO DAILY hypothyroid 08/07/24 levothyroxine 112 mcg capsule 112 mcg PO .sun hypothyroid 08/23/24 docusate sodium 100 mg capsule (Colace) 100 mg PO QDAY PRN constipation 01/23/25 Hospital Course Operations None Procedures - (vaginal delivery) Summary of Care Provided Minutes Spent on Discharge: 10 Hospital Course: The patient was admitted to L&D for induction of labor for mild pre-eclampsia at 37 weeks on 03/07/25. She had a successful vaginal delivery on 03/08/2025. On her post day #1 she was feeling exhausted and requiring breast feeding assistance but was asymptomatic overall. Blood pressures were normal. On Post day #2 she was well rested, pressures still normal and was requesting DC to home. Physical Exam Const alert, oriented x3 and no apparent distress General Appearance: cooperative and comfortable Resp normal respiratory effort Cardio regular rate GI normal to inspection, nondistended, normoactive bowel sounds GI Narrative: uterus is firm below umbilicus Palpation: soft Back/Spine no CVA tenderness and thoraco-lumbar ROM normal Extremity normal to inspection, no clubbing, cyanosis or edema, no calf tenderness and no pedal edema Psych mental status grossly normal, thought process normal, cooperative, affect normal, speech normal, activity/motor behavior normal, denies homicidal ideation and denies suicidal ideation Weight / BMI Weight Weight: 208 lb Body Mass Index (BMI) 30.7 ABG / Lab / Microbiology Data 03/07/25 18:25 D/C Instructions May resume sexual activity in: 4-6 weeks Call your doctor if your incision/area has: Continuous Slow Oozing, Sudden Increased Bleeding, Increased Pain/ Swelling, Increased Redness and Foul Smelling Discharge DC O2, CPAP, BIPAP Needs Home O2 Discharge instructions: No Please Follow Up With: Padma Gutierrez DO When: Call [phone] to make an appointment with your doctor in 6 weeks. If you had elevated blood pressure or 4th degree laceration, you will need to be seen in 2 weeks. Meaningful Use Info Meaningful Use Meaningful Use Diagnoses (Choose all that apply): None applicable Discharge Plan Admission Admit Date/Time: 03/07/25 18:01 Primary Reason for Your Visit: vaginal delivery Attending Provider: Padma Gutierrez Primary Care Provider: Minna Marks Discharge Orders/Prescriptions Prescriptions: No Action levothyroxine 75 mcg tablet 75 mcg PO DAILY Rx Instructions: Sundays -1.5tab, Mon-Sat 1 tab levothyroxine 112 mcg capsule 112 mcg PO .sun DHA 200 mg capsule PO docusate sodium [Colace] 100 mg capsule 100 mg PO QDAY PRN (Reason: constipation) Referrals / Follow Up: Padma Gutierrez DO [Med Staff - Active Staff, Obstetrics-Gynecology (OBGYN)] Minna Marks MD [Primary Care Provider, Family Practice] Disposition Disposition (needs filled in before D/C Order can be placed): Home, Self Care
== END 2025-03-10 12:30 | disposition home or self-care (01) | DRG 806 ==
PROVIDERS: Admitting Provider Obstetrics & Gynecology; PCP Family Medicine; Referring Provider Obstetrics & Gynecology; Visit Provider Obstetrics & Gynecology
DX: O14.04 Mild to moderate pre-eclampsia, complicating childbirth (principal); Z37.0 Single live birth; E72.12 Methylenetetrahydrofolate reductase deficiency; E07.9 Disorder of thyroid, unspecified; O99.892 Other specified diseases and conditions complicating childbirth; Z3A.37 37 weeks gestation of pregnancy; Z79.890 Hormone replacement therapy; O99.284 Endocrine, nutritional and metabolic diseases complicating childbirth; N80.9 Endometriosis, unspecified; O70.1 Second degree perineal laceration during delivery
CPT/HCPCS: 59025; 59050; 85025; 86780; 86850; 86900; 86901; 99221; G0378

== ENCOUNTER → 2025-03-07 | Outpatient (CLI) | payer BC, SELFPAY ==
[2025-03-07 16:41] LABS: Hematocrit 40.2 % (37-47); Hemoglobin 13.8 g/dL (12.0-15.0); Immature Granulocytes Count 0.270 X10^3/uL (0.0-0.0); Mean Corp Hgb Conc 34.3 g/dL (32-36); Mean Corpuscular Volume 93.7 fL (81-99); Mean Platelet Vol. 10.5 fl (6.2-12.0); NRBC Flagged by Analyzer 0 % (0-5); Platelet Count 223 K/mm3 (150-450); RBC Distribution Width CV 12.8 % (11.6-14.6); RBC Distribution Width SD 43.7 fl (35.1-43.9); Red Blood Count 4.29 M/mm3 (4.2-5.4); White Blood Count 12.1 K/mm3 (4.4-11.0)
[2025-03-07 17:02] LABS: AST(SGOT) 25 U/L (<=31); Alanine Aminotransfer ALT/SGPT 19 U/L (<=34); Albumin, Serum 3.8 g/dL (3.5-5.0); Alkaline Phosphatase 92 U/L (35-104); Anion Gap 10 (5-15); BUN 6 mg/dL (4-19); BUN/Creat Ratio 9.2 RATIO (10-20); Calcium,Total 9.4 mg/dL (7.6-11.0); Carbon Dioxide 23.0 mmol/L (21.0-32.0); Chloride 104 mmol/L (98-108); Globulin 2.6 g/dL (2.2-4.2); Glucose 98 mg/dL (70-99); Potassium 4.0 mmol/L (3.3-5.1)
[2025-03-07 17:02] LABS: Creatinine, Urine (random) 23.60 mg/dL (28.00-217.00); Protein, Urine (Random) 7.8 mg/dL (0.0-12.0); Protein:Creat Ratio 330 mg/g CRE (0-200)
== END | disposition home or self-care (01) ==
PROVIDERS: PCP Family Medicine; Visit Provider Obstetrics & Gynecology
DX: O16.9 Unspecified maternal hypertension, unspecified trimester (principal); Z3A.00 Weeks of gestation of pregnancy not specified
CPT/HCPCS: 36415; 80053; 82570; 84156; 85025

== ENCOUNTER 2025-03-12 17:00 | Outpatient (CLI) | payer BC, SELFPAY ==
[2025-03-12] VITALS (36 sets, daily range): BP systolic 129–158; BP diastolic 74–91; PULSE 53–72; RESP 16; TEMP 36.2; O2SAT 99–100; BMI 30.8
[2025-03-12 18:00] LABS: Hematocrit 33.8 % (37-47); Hemoglobin 12.0 g/dL (12.0-15.0); Mean Corp Hgb Conc 35.5 g/dL (32-36); Mean Corpuscular Volume 91.4 fL (81-99); Mean Platelet Vol. 10.2 fl (6.2-12.0); Platelet Count 250 K/mm3 (150-450); RBC Distribution Width CV 12.5 % (11.6-14.6); RBC Distribution Width SD 41.3 fl (35.1-43.9); Red Blood Count 3.70 M/mm3 (4.2-5.4); White Blood Count 14.4 K/mm3 (4.4-11.0)
[2025-03-12 18:18] LABS: AST(SGOT) 31 U/L (<=31); Alanine Aminotransfer ALT/SGPT 33 U/L (<=34); Uric Acid 5.6 mg/dL (2.6-6.0)
--- NOTE | 2025-03-12 19:46 | NURSING ---
This RN assuming care of pt from Raleigh Hernadez RN at 1915. RN to continue monitoring pt and update provider as needed.
--- NOTE | 2025-03-12 20:30 | OB.TRI.PN_ITS ---
Progress Notes Date of Service: 03/12/25 Progress Note: Patient presents for triage evaluation secondary to elevated BP at appointment. Delivered 03/08/25. Sent to for labs and BP monitoring. Denies headache, dizziness, blurred vision. Did have elevated BPs ranging from 130s/80- 150s/90s. Labs reviewed and normal. Decision made for HTN medication to be started. One dose of PO Labetalol 100mg was given. After giving, it was noted her HR was in the 50s prior to giving. Decision made to monitor HR for 2 hours and will treat if becomes symptomatic. Dr Jeffrey updated and agrees with plan. Will plan on discharge on Procardia XL 30mg and follow up in the office on or tuesday for BP check. Laboratory Studies: Laboratory Tests 03/12/25 Range/Units 17:25 WBC 14.4 H (4.4-11.0) K/mm3 RBC 3.70 L (4.2-5.4) M/mm3 Hgb 12.0 (12.0-15.0) g/dL Hct 33.8 L (37-47) % MCV 91.4 (81-99) fL MCH 32.4 H (27.0-32.0) pg MCHC 35.5 (32-36) g/dL RDW Std Deviation 41.3 (35.1-43.9) fl RDW Coeff of Tae 12.5 (11.6-14.6) % Plt Count 250 (150-450) K/mm3 MPV 10.2 (6.2-12.0) fl Creatinine 0.72 (0.70-1.20) mg/dL Est GFR (MDRD) Non-Af 112 (>60) Uric Acid 5.6 (2.6-6.0) mg/dL AST 31 (<=31) U/L ALT 33 (<=34) U/L Charges/Coding Multi Select Codes Visit Charges Office Visit/Consults: 30664 OV L3 Est 20min Assessment & Plan (1) Mild pre-eclampsia: PLAN: procardia xl 30mg return to office or tue for BP check
== END 2025-03-12 21:28 | disposition home or self-care (01) ==
LOC: WPOUT 17:03 → WP 17:04
PROVIDERS: PCP Family Medicine; Referring Provider Advanced Practice Midwife; Visit Provider Advanced Practice Midwife
DX: O14.05 Mild to moderate pre-eclampsia, complicating the puerperium (principal); Z3A.00 Weeks of gestation of pregnancy not specified
CPT/HCPCS: 36415; 82565; 84450; 84460; 84550; 85027; 94760; 99221; G0378

== ENCOUNTER → 2025-03-14 | Outpatient (CLI) | payer BC, SELFPAY ==
[2025-03-14 14:45] LABS: Hematocrit 39.2 % (37-47); Hemoglobin 13.8 g/dL (12.0-15.0); Immature Granulocytes Count 0.160 X10^3/uL (0.0-0.0); Mean Corp Hgb Conc 35.2 g/dL (32-36); Mean Corpuscular Volume 91.6 fL (81-99); Mean Platelet Vol. 9.6 fl (6.2-12.0); NRBC Flagged by Analyzer 0 % (0-5); Platelet Count 327 K/mm3 (150-450); RBC Distribution Width CV 12.4 % (11.6-14.6); RBC Distribution Width SD 41.7 fl (35.1-43.9); Red Blood Count 4.28 M/mm3 (4.2-5.4); White Blood Count 12.9 K/mm3 (4.4-11.0)
[2025-03-14 15:32] LABS: AST(SGOT) 22 U/L (<=31); Alanine Aminotransfer ALT/SGPT 31 U/L (<=34); Albumin, Serum 3.9 g/dL (3.5-5.0); Alkaline Phosphatase 86 U/L (35-104); Anion Gap 11 (5-15); BUN 18 mg/dL (4-19); BUN/Creat Ratio 16.8 RATIO (10-20); Calcium,Total 9.6 mg/dL (7.6-11.0); Carbon Dioxide 21.1 mmol/L (21.0-32.0); Chloride 106 mmol/L (98-108); Globulin 3.0 g/dL (2.2-4.2); Glucose 76 mg/dL (70-99); Potassium 3.9 mmol/L (3.3-5.1)
== END | disposition home or self-care (01) ==
PROVIDERS: PCP Family Medicine; Visit Provider Obstetrics & Gynecology
DX: O14.00 Mild to moderate pre-eclampsia, unspecified trimester (principal); Z3A.00 Weeks of gestation of pregnancy not specified
CPT/HCPCS: 36415; 80053; 85025